=== PATIENT | female | born 1970 | race Caucasian/White ===

== ENCOUNTER → 2018-11-21 | Day surgery (SDC) | payer OTHER ==
[2018-11-18 17:32] LABS: BASOPHILS # (AUTO) 0.1 (0.0-0.1); BASOPHILS % 0.4 % (0.0-1.0); EOSINOPHILS # (AUTO) 0.1 (0.0-0.4); HEMATOCRIT 36.3 % (34.2-44.1); HEMOGLOBIN 11.4 g/dL (12.0-16.0); LYMPHOCYTES # (AUTO) 2.2 (1.0-3.2); MEAN CORPUSCULAR HEMOGLOBIN 25.6 pg (28-32); MEAN CORPUSCULAR HGB CONC 31.4 g/dL (31-35); MEAN CORPUSCULAR VOLUME 81.6 fL (81-99); MONOCYTES # (AUTO) 0.8 (0.2-0.8); MONOCYTES % 6.4 % (4.4-11.3); NEUTROPHILS # (AUTO) 8.8 (2.1-6.9); NEUTROPHILS % 73.4 % (38.7-80.0); PLATELET COUNT 396 x10e3/uL (140-360); RED BLOOD COUNT 4.45 x10e6/uL (3.6-5.1); RED CELL DISTRIBUTION WIDTH 16.3 % (11.7-14.4)
[2018-11-18 17:46] LABS: ANION GAP 14.6 mmol/L (8-16); BLOOD UREA NITROGEN 14 mg/dL (7-26); BUN/CREATININE RATIO 15 (6-25); CALCIUM 9.6 mg/dL (8.4-10.2); CARBON DIOXIDE 27 mmol/L (22-29); CHLORIDE 100 mmol/L (98-107); CREATININE, SERUM 0.93 mg/dL (0.57-1.11); EST GLOMERULAR FILTRATION RATE > 60 ML/MIN (60-); GLUCOSE 89 mg/dL (74-118); POTASSIUM 3.6 mmol/L (3.5-5.1); SODIUM 138 mmol/L (136-145)
--- NOTE | 2018-11-18 17:57 | Diagnostic Imaging Report ---
Frontal and lateral views of the chest. HISTORY: Preop, hysterectomy COMPARISON: None available. DISCUSSION: Soft tissue attenuation partially limits sensitivity of the exam. Lungs: Low lung volumes result in bibasilar vascular crowding, accentuation of the pulmonary interstitial markings, central pulmonary vasculature, and the cardiac silhouette. Allowing for these limitations, the findings are as follows: No evidence of a consolidative pneumonia or pulmonary alveolar edema. Pleura: No pleural effusion or pneumothorax. Heart and mediastinum: The cardiomediastinal silhouette appear(s) unremarkable. Bones and soft tissues: Mild accentuation of the thoracic kyphosis and multilevel minimal degenerative disc changes. Cholecystectomy clips. IMPRESSION: No acute radiographic abnormality. Signed by: Dr. Manjeet Hernandez D.O., M.M.M. on 11/18/2018 5:54 PM
[~2018-11-21] MED LIST: ALORA1 EAC1 PO; AZELASTINE137 MCG/0. INH; BUPIVACAINE 0.25% 30ML SDV INJ ONE; BUPIVACAINE HCL 0.5% INJ 30 ML VIAL INJ ONE; CARAFATE1 GM/10 ML PO; CEFAZOLIN SOD 1 GM/NS 50ML 100 ML IV ONE; DEXAMETHASONE SOD PHOS INJ 4 MG/ML VIAL ONE; DIPHENHYDRAMINE HCL INJ 50 MG/ML VIAL ONE; FENTANYL CITRATE/PF 100MCG/2 ML INJ ONE; FUROSEMIDE40 MG PO; HYDRALAZINE HCL25 MG PO; IBUPROFEN400 MG PO; IPRAT-ALBUT 0.5-3 ML INH; LEXAPRO10 MG PO; LIDOCAINE HCL 2% LOCAL INJ 5 ML SDV VIAL INJ ONE; LISINOPRIL-HCT1 EACH PO; METOPROLOL TART50 MG PO; MIDAZOLAM HCL 2 MG/2 ML VIAL ONE; MONTELUKAST SOD10 MG PO; MUCINEX DM ER1 EACH PO; NEOSTIGMINE 1 MG/ML 10ML VIAL ONE; ONDANSETRON HCL INJ 2MG/ML 2ML 2 MG/ML VIAL ONE; PANTOPRAZOLE SO40 MG PO; PAROXETINE HCL20 MG PO; PAROXETINE HCL25 MG PO; PROPOFOL IV EMULSION 10 MG/ML 20 ML VIAL ONE; SEVOFLURANE INHAL SOLN 250 ML PEN BTL ONE; SYMBICORT 16010.2 GM INH; VALTREX500 MG PO; ZOLPIDEM TARTRA10 MG PO; ZYRTEC10 M3 PO; flonase INH
--- OUTSIDE RECORDS SUMMARY | 2018-11-21 07:57 | XMS REPORT | Continuity of Care Document ---
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 [facility] STROKE LIKE SYMPTOMS Active 11/05/2017 [facility] Dizziness and giddiness 06/12/2017 06/15/2017 [facility] HYPERTENSION Active 06/11/2017 [facility] UNK Active 05/14/2017 [facility] Acute bronchitis (disorder) Resolved Problem 08/03/2018 [facility] Allergic disorder of skin (disorder) Resolved Problem 08/03/2018 [facility] Aneurysm of renal artery (disorder) Active Problem 08/03/2018 [facility] Asthma (disorder) Active Problem 08/03/2018 [facility] Backache (finding) Active Problem 08/03/2018 [facility] Bacterial pneumonia (disorder) Resolved Problem 08/03/2018 [facility] Body fluid retention (disorder) Active Problem 08/03/2018 [facility] Chronic pain (finding) Active Problem 08/03/2018 [facility] Depressive disorder (disorder) Active Problem 08/03/2018 [facility] Disease of urinary tract (disorder) Active Problem 08/03/2018 [facility] Endometriosis (disorder) Active Problem 08/03/2018 [facility] Environmental allergy (disorder) Active Problem 08/03/2018 [facility] Gastroesophageal reflux disease (disorder) Active Problem 08/03/2018 [facility] Genital herpes simplex (disorder) Resolved Problem 08/03/2018 [facility] Hiatal hernia (disorder) Active Problem 08/03/2018 [facility] Hypertensive disorder, systemic arterial (disorder) Active Problem 08/03/2018 [facility] Irritable colon (disorder) Active Problem 08/03/2018 [facility] Peripheral vascular disease (disorder) Active Problem 08/03/2018 [facility] Jaw pain 05/25/2018 [facility] NIHSS score 2 05/25/2018 [facility] Dysarthria and anarthria 05/25/2018 [facility] Essential (primary) hypertension 05/25/2018 [facility] Aneurysm of unspecified site 05/25/2018 [facility] Major depressive disorder, single episode, unspecified 05/25/2018 [facility] Unspecified asthma, uncomplicated 05/25/2018 [facility] Endometriosis, unspecified 05/25/2018 [facility] Gastro-esophageal reflux disease without esophagitis 05/25/2018 [facility] Irritable bowel syndrome without diarrhea 05/25/2018 [facility] Acquired absence of other specified parts of digestive tract 05/25/2018 [facility] Acquired absence of both cervix and uterus 05/25/2018 [facility] Mild intermittent asthma, uncomplicated 09/13/2017 [facility] 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 WASTE: F/P - Black; E - [facility]ash [facility] Active 01/13/2018 [facility] valACYclovir 1 g oral tablet 1 gm=1 tab, PO, Q8H, X 14 day, # 42 tab, 0 Refill(s) No Longer Active 11/05/2017 [facility] predniSONE 20 mg oral tablet See Special Instructions, PO, Daily, 16 day regimen: Days 1-4 - 40 mg (2 tabs) daily Days 5-8 - 30 mg (1 1/2 tabs) daily Days 9-12 - 20 mg (1 tab) daily Day 13-16 - 10 mg (1/2 tab) daily, X 16 day, # 24 tab, 0 Refill(s) No Longer Active 11/05/2017 [facility] Ibuprofen 800 mg, Route: PO, Drug form: TAB, ONCE, Dosing Weight 97.727, kg, Priority: STAT, Start date: 11/05/17 10:46:00 CDT, Stop date: 11/05/17 10:46:00 CDT Inactive 11/05/2017 [facility] Saline Flush 0.9% 10 mL, Route: IVP, Drug Form: INJ, Dosing Weight 97.727, kg, PRN, PRN Line Flush, Start date: 11/05/17 9:29:00 CDT, Duration: 30 day, Stop date: 12/05/17 9:28:00 CDTNotes: Same as: BD Posiflush Sterile Inactive 11/05/2017 [facility] Omnipaque 300 100 mL, 0.5 ml/hr, Route: IV, Drug Form: SOLN, ONCALL, Start date: 07/01/17 12:00:00 CDT, Duration: 1 day, Stop date: 07/02/17 11:59:00 CDTNotes: (Same as:Omnipaque 300). WASTE: F/P - Black; E - Municipal Trash Bin No Longer Active 07/01/2017 [facility] Benadryl 25 mg, Route: IVP, ONCE, Dosing Weight 108.182, kg, Priority: STAT, Start date: 06/12/17 4:04:00 CDT, Stop date: 06/12/17 4:04:00 CDT Inactive 06/12/2017 [facility] Reglan 10 mg, Route: IVP, Drug form: INJ, ONCE, Dosing Weight 108.182, kg, Priority: STAT, Start date: 06/12/17 4:04:00 CDT, Stop date: 06/12/17 4:04:00 CDT Inactive 06/12/2017 [facility] Fentanyl 50 microgram, Route: IVP, ONCE, Dosing Weight 108.182, kg, Priority: STAT, Start date: 06/12/17 2:55:00 CDT, Stop date: 06/12/17 2:55:00 CDT Inactive 06/12/2017 [facility] Hydralazine 10 mg, 0.5 mL, Route: IVP, Drug form: INJ, ONCE, Dosing Weight 108.182, kg, Priority: STAT, Start date: 06/12/17 0:51:00 CDT, Stop date: 06/12/17 0:51:00 CDTNotes: (Same as: Apresoline) Push over 5 m inutes Inactive 06/12/2017 [facility] Saline Flush 0.9% 10 mL, Route: IVP, Drug Form: INJ, Dosing Weight 108.182, kg, PRN, PRN Line Flush, Start date: 06/11/17 18:08:00 CDT, Duration: 30 day, Stop date: 07/11/17 18:07:00 CDTNotes: (Same as: BD Posiflush) No Longer Active 06/11/2017 [facility] Estradiol 1 MG Oral Tablet 1 mg, 1 tab, Route: PO, Drug form: TAB, Daily, Dosing Weight 108.045, kg, Start date: 06/06/17 9:00:00 CDT, Duration: 30 day, Stop date: 07/05/17 9:00:00 CDT Inactive 06/06/2017 [facility] Escitalopram 20 mg, 2 tab, Route: PO, Drug form: TAB, Daily, Dosing Weight 108.045, kg, Start date: 06/06/17 9:00:00 CDT, Duration: 30 day, Stop date: 07/05/17 9:00:00 CDTNotes: (Same as: Lexapro) Inactive 06/06/2017 [facility] pantoprazole 40 mg, 1 tab, Route: PO, Drug form: ECTAB, Daily, Dosing Weight 108.045, kg, Start date: 06/06/17 9:00:00 CDT, Duration: 30 day, Stop date: 07/05/17 9:00:00 CDTNotes: Tablet should not be chewed or c rushed. (Same as: Protonix) Inactive 06/06/2017 [facility] *Remind pt to bring home med Citrucel* *Remind pt to bring home med Citrucel*, Reminder, Drug form: MISC, Route: MISC, QSHIFT, 06/06/17 0:00:00 CDT, Duration: 30 day, Stop date: 07/05/17 16:00:00 CDT Inactive 06/06/2017 [facility] montelukast 10 mg, 1 tab, Route: PO, Drug form: TAB, Bedtime, Dosing Weight 108.045, kg, Start date: 06/05/17 21:00:00 CDT, Duration: 30 day, Stop date: 07/04/17 21:00:00 CDTNotes: (Same as:Singulair) No Longer Active 06/06/2017 [facility] Lopressor 50 mg, 1 tab, Route: PO, Drug form: TAB, Q12H, Dosing Weight 108.045, kg, Start date: 06/05/17 21:00:00 CDT, Duration: 30 day, Stop date: 07/05/17 9:00:00 CDTNotes: (Same as: Lopressor) No Longer Active 06/06/2017 [facility] zolpidem 5 mg, 1 tab, Route: PO, Drug form: TAB, Bedtime, Dosing Weight 108.045, kg, Start date: 06/05/17 21:00:00 CDT, Duration: 30 day, Stop date: 07/04/17 21:00:00 CDTNotes: (Same As: Ambien) No Longer Active 06/06/2017 [facility] Methylcellulose 2000 MG Powder for Oral Suspension [Citrucel] 2 gm, Route: PO, Drug form: PDR/REC, TID, Dosing Weight 108.045, kg, Start date: 06/05/17 17:00:00 CDT, Duration: 30 day, Stop date: 07/05/17 13:00:00 CDT No Longer Active 06/05/2017 [facility] Methocarbamol 1,500 mg, 2 tab, Route: PO, Drug form: TAB, TID, Dosing Weight 108.045, kg, Start date: 06/05/17 17:00:00 CDT, Duration: 30 day, Stop date: 07/05/17 13:00:00 CDTNotes: (Same as:Robaxin) No Longer Active 06/05/2017 [facility] clobetasol topical 0.05% cream 1 appl, Route: TOP, BID, Drug form: CRM, Start date: 06/05/17 17:00:00 CDT, Duration: 30 day, Stop date: 07/05/17 9:00:00 CDTNotes: 15 gm tube (Same As: Temovate) No Longer Active 06/05/2017 [facility] Symbicort 160/4.5 inhalation aerosol with adapter 2 inhalation, Route: INHALER, Drug Form: AERO/A, Dosing Weight 108.045, kg, BID, Start date: 06/05/17 17:00:00 CDT, Duration: 30 day, Stop date: 07/05/17 9:00:00 CDTNotes: (Same as: Symbicort) WASTE: Aerosol - Return to Pharmacy No Longer Active 06/05/2017 [facility] Clobetasol Propionate 0.5 MG/ML Topical Cream 1 appl, Route: TOP, BID, Drug form: CRM, Start date: 06/05/17 17:00:00 CDT, Duration: 30 day, Stop date: 07/05/17 9:00:00 CDTNotes: 15 gm tube (Same As: Temovate) No Longer Active 06/05/2017 [facility] Eye Itch Relief 1 drp, Route: BOTH EYES, Drug Form: SOLN, Dosing Weight 108.045, kg, Q8H, Start date: 06/05/17 16:00:00 CDT, Duration: 30 day, Stop date: 07/05/17 8:00:00 CDTNotes: (Same as:Zaditor) No Longer Active 06/05/2017 [facility] Lovenox 40 mg, 0.4 mL, Route: SUB-Q, Drug form: INJ, [id number], Dosing Weight 108.045, kg, Priority: Within 8 hours, Start date: 06/05/17 15:00:00 CDT, Duration: 30 day, Stop date: 07/04/17 9:00:00 CDTNotes: (Same as: Lovenox) No Longer Active 06/05/2017 [facility] Benadryl 50 mg, 2 tab, Route: PO, Drug form: TAB, Q8H, Dosing Weight 108.045, kg, PRN Itching, Start date: 06/05/17 14:55:00 CDT, Duration: 30 day, Stop date: 07/05/17 14:54:00 CDT No Longer Active 06/05/2017 [facility] Zofran 4 mg, 2 mL, Route: IVP, Drug form: INJ, Q8H, Dosing Weight 108.045, kg, PRN Nausea, Start date: 06/05/17 14:54:00 CDT, Duration: 30 day, Stop date: 07/05/17 14:53:00 CDTNotes: (Same as: Zofran) MEDICATION WASTE Product Size: 4 mg Product Wasted: ___ mg No Longer Active 06/05/2017 [facility] Morphine 2 mg, 1 mL, Route: IVP, Drug form: SOLN, Q2H, Dosing Weight 108.045, kg, PRN Pain Score 7-10, Start date: 06/05/17 14:50:00 CDT, Duration: 30 day, Stop date: 07/05/17 14:49:00 CDT No Longer Active 06/05/2017 [facility] Ondansetron 4 mg, Route: IVP, ONCE, Dosing Weight 108.045, kg, PRN Nausea & Vomiting, Start date: 06/05/17 14:40:00 CDT Inactive 06/05/2017 [facility] Promethazine 6.25 mg, Route: IVPB, ONCE, Dosing Weight 108.045, kg, PRN Nausea & Vomiting, Start date: 06/05/17 14:40:00 CDT Inactive 06/05/2017 [facility] Naloxone 0.4 mg, Route: IVP, Q2MIN, Dosing Weight 108.045, kg, PRN Narcotic Reversal, Start date: 06/05/17 14:40:00 CDT, Duration: 8 doses or times, Stop date: Limited # of times Inactive 06/05/2017 [facility] Flumazenil 0.2 mg, Route: IVP, PRN, Dosing Weight 108.045, kg, PRN Benzodiazepine Reversal, Initial dose, Start date: 06/05/17 14:40:00 CDT, Duration: 30 day, Stop date: 07/05/17 14:39:00 CDT Inactive 06/05/2017 [facility] Diphenhydramine 12.5 mg, Route: IVP, Drug form: INJ, Q6H, Dosing Weight 108.045, kg, PRN Itching, Start date: 06/05/17 14:40:00 CDT, Duration: 30 day, Stop date: 07/05/17 14:39:00 CDT Inactive 06/05/2017 [facility] Fentanyl 50 microgram, Route: IVP, Q5Min, Dosing Weight 108.045, kg, PRN Pain Score 7-10, Priority: Routine, Start date: 06/05/17 14:40:00 CDT, Duration: 2 doses or times, Stop date: Limited # of times Inactive 06/05/2017 [facility] Albuterol 0.83 MG/ML Inhalant Solution 2.49 mg, Route: NEB, Q20Min, Dosing Weight 108.045, kg, PRN Wheezing, Priority: STAT, Start date: 06/05/17 14:40:00 CDT, Duration: 30 day, Stop date: 07/05/17 14:39:00 CDT Inactive 06/05/2017 [facility] Hydralazine 10 mg, Route: IVP, Q20Min, Dosing Weight 108.045, kg, PRN Elevated BP, Start date: 06/05/17 14:40:00 CDT, Duration: 2 doses or times, Stop date: Limited # of times Inactive 06/05/2017 [facility] esmolol 10 mg, Route: IVP, Q5Min, Dosing Weight 108.045, kg, PRN Other -See Comment, Start date: 06/05/17 14:40:00 CDT, Duration: 5 doses or times, Stop date: Limited # of times Inactive 06/05/2017 [facility] Labetalol 10 mg, Route: IVP, Q5Min, Dosing Weight 108.045, kg, PRN Elevated BP, Start date: 06/05/17 14:40:00 CDT, Duration: 5 doses or times, Stop date: Limited # of times Inactive 06/05/2017 [facility] Calcium Chloride 0.0014 MEQ/ML / Potassium Chloride 0.004 MEQ/ML / Sodium Chloride 0.103 MEQ/ML / Sodium Lactate 0.028 MEQ/ML Injectable Solution 1,000 mL, Rate: 125 ml/hr, Infuse over: 8 hr, Route: IV, Dosing Weight 108.045 kg, Total Volume: 1,000, Start date: 06/05/17 14:40:00 CDT, Duration: 30 day, Stop date: 07/05/17 14:39:00 CDT, 2.26, m2 Inactive 06/05/2017 [facility] normal saline 0.9% IV 1,000 mL 1,000 mL, Rate: 100 ml/hr, Infuse over: 10 hr, Route: IV, Dosing Weight 108.045 kg, Total Volume: 1,000, Start date: 06/05/17 14:21:00 CDT, Duration: 30 day, Stop date: 07/05/17 14:20:00 CDT, 2.26, m2 No Longer Active 06/05/2017 [facility] ondansetron (ANES) Route: IV, Drug form: INJ, ONCE, Stop date: 06/05/17 13:45:00 CDT Inactive 06/05/2017 [facility] glycopyrrolate (ANES) Route: IV, Drug form: INJ, ONCE, Stop date: 06/05/17 13:45:00 CDT Inactive 06/05/2017 [facility] neostigmine (ANES) Route: IV, Drug form: INJ, ONCE, Stop date: 06/05/17 13:45:00 CDT Inactive 06/05/2017 [facility] protamine (ANES) 10 mg Route: IV, Drug form: INJ, Start date: 06/05/17 13:36:00 CDT, Stop date: 06/05/17 14:36:00 CDT Inactive 06/05/2017 [facility] midazolam (ANES) Route: IV, Drug form: SOLN, ONCE, Stop date: 06/05/17 13:19:00 CDT Inactive 06/05/2017 [facility] metoclopramide (ANES) Route: IV, Drug form: INJ, ONCE, Stop date: 06/05/17 13:19:00 CDT Inactive 06/05/2017 [facility] fentaNYL (ANES) Route: IV, Drug form: INJ, ONCE, Stop date: 06/05/17 13:19:00 CDT Inactive 06/05/2017 [facility] lidocaine (ANES) Route: IV, Drug form: INJ, ONCE, Stop date: 06/05/17 13:19:00 CDT Inactive 06/05/2017 [facility] heparin (ANES) Route: IV, Drug form: INJ, ONCE, Stop date: 06/05/17 13:19:00 CDT Inactive 06/05/2017 [facility] propofol (ANES) Route: IV, Drug form: INJ, ONCE, Stop date: 06/05/17 13:19:00 CDT Inactive 06/05/2017 [facility] rocuronium (ANES) Route: IV, Drug form: INJ, ONCE, Stop date: 06/05/17 13:19:00 CDT Inactive 06/05/2017 [facility] ceFAZolin (ANES) Route: IV, Drug form: INJ, ONCE, Stop date: 06/05/17 13:19:00 CDT Inactive 06/05/2017 [facility] acetaminophen (ANES) 10 mg Route: IV, Drug form: INJ, Start date: 06/05/17 13:09:00 CDT, Stop date: 06/05/17 14:09:00 CDT Inactive 06/05/2017 [facility] Sodium Chloride 0.9% IV (ANES) 1000 mL Route: IV, Total Volume: 1,000, Start date: 06/05/17 12:23:00 CDT, Stop date: 06/05/17 13:23:00 CDT Inactive 06/05/2017 [facility] vancomycin (ANES) 1000 mg Route: IV, Drug form: INJ, Start date: 06/05/17 12:17:00 CDT, Stop date: 06/05/17 13:17:00 CDT Inactive 06/05/2017 [facility] Lactated Ringers Injection IV (ANES) 1000 mL Route: IV, Total Volume: 1,000, Start date: 06/05/17 11:58:00 CDT, Stop date: 06/05/17 12:58:00 CDT Inactive 06/05/2017 [facility] Albuterol 0.833 MG/ML / Ipratropium [place] 0.167 MG/ML Inhalant Solution 3 mL, Route: NEB, Drug Form: SOLN, Dosing Weight 108.045, kg, ONCE, STAT, Start date: 06/05/17 10:35:00 CDT, Stop date: 06/05/17 10:35:00 CDTNotes: (Same as: Tim) No Longer Active 06/05/2017 [facility] Calcium Chloride 0.0014 MEQ/ML / Potassium Chloride 0.004 MEQ/ML / Sodium Chloride 0.103 MEQ/ML / Sodium Lactate 0.028 MEQ/ML Injectable Solution 1,000 mL, Rate: 25 ml/hr, Infuse over: 40 hr, Route: IV, Dosing Weight 108.045 kg, Total Volume: 1,000, Start date: 06/05/17 10:35:00 CDT, Duration: 1 day, Stop date: 06/06/17 10:34:00 CDT, 2.26, m2 No Longer Active 06/05/2017 [facility] metoprolol 50 mg oral tablet, extended release See Instructions, 1 1/2 tab PO BID, 0 Refill(s) Active 05/29/2017 [facility] Azelastine hydrochloride 0.137 MG/ACTUAT / Fluticasone propionate 0.05 MG/ACTUAT Metered Dose Nasal [place] [Dymista] 2 spray, NASAL, BID, # 23 gm, 1 Refill(s) Active 05/29/2017 [facility] montelukast 10 mg oral tablet 10 mg=1 tab, PO, Bedtime, # 30 tab, 0 Refill(s) Active 05/29/2017 [facility] ibuprofen 800 mg oral tablet 800 mg=1 tab, PO, Q8H, PRN Pain, Take with food, # 30 tab, 0 Refill(s) Active 05/29/2017 [facility] zolpidem 10 mg oral tablet 10 mg=1 tab, PO, Bedtime, 0 Refill(s) Active 05/29/2017 [facility] Estradiol 1 MG Oral Tablet 1 mg=1 tab, PO, Daily, # 30 tab, 0 Refill(s) Active 05/29/2017 [facility] Zyrtec See Instructions, Daily, 0 Refill(s) Active 05/29/2017 [facility] methocarbamol 750 mg oral tablet 1,500 mg=2 tab, PO, TID, 0 Refill(s) Active 05/29/2017 [facility] escitalopram 20 mg oral tablet 20 mg=1 tab, PO, Daily, # 30 tab, 0 Refill(s) Active 05/29/2017 [facility] Symbicort 160/4.5 inhalation aerosol with adapter 2 puff, INHALER, BID, # 1 ea, 3 Refill(s) Active 05/29/2017 [facility] Furosemide See Instructions, WED-SAT only, 0 Refill(s) Active 05/29/2017 [facility] pantoprazole 40 mg, PO, Daily, # 30 tab, 0 Refill(s) Active 05/29/2017 [facility] Lexapro PO, Daily, 0 Refill(s) Active 05/29/2017 [facility] Methylcellulose 2000 MG Powder for Oral Suspension [Citrucel] 2 gm, PO, TID, 0 Refill(s) Active 05/29/2017 [facility] Ondansetron 4 MG Oral Tablet [Zofran] 4 mg=1 tab, PO, Q6H, PRN Nausea/Vomiting, # 30 tab, 0 Refill(s) Active 05/29/2017 [facility] Eye Itch Relief 1 drp, BOTH EYES, Q8H, 0 Refill(s) Active 05/29/2017 [facility] Benadryl See Instructions, 0 Refill(s) Active 05/29/2017 [facility] clobetasol topical 0.05% cream 1 appl, TOP, BID, 0 Refill(s) Active 05/29/2017 [facility] Clobetasol Propionate 0.5 MG/ML Topical Cream 1 appl, TOP, BID, 0 Refill(s) Active 05/29/2017 [facility] Vancomycin 1 gm, Route: IVPB, Drug form: INJ, PRE OP, kg, Start date: 05/29/17 11:00:00 CDT, Duration: 1 day, Stop date: 05/30/17 10:59:00 CDT, ABX Indication: Surgical ProphylaxisNotes: TIME CRITICAL MEDICATIO N (Same As: Vancocin) Infusion rate 2001 mg: infuse over 2.5 hours For adult patients only: Round to nearest 250 mg per Medical Staff approval MEDICATION WASTE Product Size: 1000 mg Product Wasted: ___ mg No Longer Active 05/29/2017 [facility] Ancef + sterile water 20 mL 2 gm, Route: IV, PRE OP, kg, Start date: 05/29/17 11:00:00 CDT, Duration: 1 day, Stop date: 05/30/17 10:59:00 CDT, ABX Indication: Surgical ProphylaxisNotes: (Same As: Ancef Kefzol) MEDICATION WASTE Product Size: 1000 mg Product Wasted: __0_ mg No Longer Active 05/29/2017 [facility] Allergies, Adverse Reactions, Alerts Substance Category Reaction Severity Reaction type Status Date Reported Comments Source codeine Assertion Drug allergy Active [facility] Toradol Assertion Drug allergy Active [facility] Dilaudid Assertion Drug allergy Active [facility] Vicodin Assertion Drug allergy Active [facility] Tape Assertion Drug allergy Active [facility] traMADol Assertion Drug allergy Active [facility] HYDROcodone Assertion Drug allergy Active [facility] Immunizations No Data Provided for This Section Results Order Name Results Value Reference Range Date Interpretation Comments Source CHEM PANEL eGFR 88 01/13/2018 Result Comment: The eGFR is calculated using the CKD-EPI formula. In most young, healthy individuals the eGFR will be >90 mL/min/1.73m2. The eGFR declines with age. An eGFR of 60-89 may be normal in some populations, particularly the elderly, for whom the CKD-EPI formula has not been extensively validated. Use of the eGFR is not recommended in the following populations:

Individuals with unstable creatinine concentrations, including patients and those with serious co-morbid conditions.

Patients with extremes in muscle mass or diet.

The data above are obtained from the National Kidney Disease Education Program (NKDEP) which additionally recommends that when the eGFR is used in patients with extremes of body mass index for purposes of drug dosing, the eGFR should be multiplied by the estimated BMI. [facility] CHEM PANEL POC Creatinine 0.8 0.5 - 1.4 01/13/2018 [facility] CHEM PANEL POC Creatinine 0.8 0.5 - 1.4 11/05/2017 [facility] CHEM PANEL eGFR 88 11/05/2017 Result Comment: The eGFR is calculated using the CKD-EPI formula. In most young, healthy individuals the eGFR will be >90 mL/min/1.73m2. The eGFR declines with age. An eGFR of 60-89 may be normal in some populations, particularly the elderly, for whom the CKD-EPI formula has not been extensively validated. Use of the eGFR is not recommended in the following populations:

Individuals with unstable creatinine concentrations, including patients and those with serious co-morbid conditions.

Patients with extremes in muscle mass or diet.

The data above are obtained from the National Kidney Disease Education Program (NKDEP) which additionally recommends that when the eGFR is used in patients with extremes of body mass index for purposes of drug dosing, the eGFR should be multiplied by the estimated BMI. [facility] CARDIAC ENZYMES Troponin-I <0.02 0.00 - 0.40 11/05/2017 [facility] CARDIAC ENZYMES Total CK 76 12 - 191 11/05/2017 [facility] ELECTROLYTES Sodium Lvl 143 135 - 145 11/05/2017 [facility] ELECTROLYTES Potassium Lvl 3.8 3.5 - 5.1 11/05/2017 [facility] ELECTROLYTES Creatinine Lvl 0.90 0.50 - 1.40 11/05/2017 [facility] ELECTROLYTES Chloride Lvl 105 95 - 109 11/05/2017 [facility] ELECTROLYTES CO2 27 24 - 32 11/05/2017 [facility] ELECTROLYTES Calcium Lvl 8.3 8.5 - 10.5 11/05/2017 [facility] ELECTROLYTES eGFR 77 11/05/2017 Result Comment: The eGFR is calculated using the CKD-EPI formula. In most young, healthy individuals the eGFR will be >90 mL/min/1.73m2. The eGFR declines with age. An eGFR of 60-89 may be normal in some populations, particularly the elderly, for whom the CKD-EPI formula has not been extensively validated. Use of the eGFR is not recommended in the following populations:

Individuals with unstable creatinine concentrations, including patients and those with serious co-morbid conditions.

Patients with extremes in muscle mass or diet.

The data above are obtained from the National Kidney Disease Education Program (NKDEP) which additionally recommends that when the eGFR is used in patients with extremes of body mass index for purposes of drug dosing, the eGFR should be multiplied by the estimated BMI. [facility] ELECTROLYTES Glucose Lvl 118 70 - 99 11/05/2017 [facility] ELECTROLYTES BUN 14 7 - 22 11/05/2017 [facility] ELECTROLYTES AGAP 14.8 10.0 - 20.0 11/05/2017 [facility] Monocytes 8.2 2.0 - 12.0 11/05/2017 [facility] Lymphocytes 20.4 20.0 - 40.0 11/05/2017 [facility] Segs 69.7 45.0 - 75.0 11/05/2017 [facility] Neutrophils # 6.2 1.5 - 8.1 11/05/2017 [facility] Basophils 0.4 0.0 - 1.0 11/05/2017 [facility] Monocytes # 0.7 0.0 - 0.8 11/05/2017 [facility] Eosinophils # 0.1 0.0 - 0.5 11/05/2017 [facility] Eosinophils 1.3 0.0 - 4.0 11/05/2017 [facility] Microcyte 1+ *ABN* (11/05/17 9:32 AM) None Seen 11/05/2017 [facility] Lymphocytes # 1.8 1.0 - 5.5 11/05/2017 [facility] Hct 34.7 36.0 - 48.0 11/05/2017 [facility] Hgb 11.2 12.0 - 16.0 11/05/2017 [facility] MCH 25.4 27.0 - 31.0 11/05/2017 [facility] [facility] [place] MCV 78.2 80.0 - 98.0 11/05/2017 [facility] RBC 4.43 4.20 - 5.40 11/05/2017 [facility] RDW 16.2 11.5 - 14.5 11/05/2017 [facility] Platelet 347 133 - 450 11/05/2017 [facility] MPV 8.3 7.4 - 10.4 11/05/2017 [facility] MCHC 32.4 32.0 - 36.0 11/05/2017 [facility] WBC 8.9 3.7 - 10.4 11/05/2017 [facility] PTT 35.1 22.9 - 35.8 11/05/2017 [facility] INR 0.93 0.85 - 1.17 11/05/2017 [facility] PT 12.5 12.0 - 14.7 11/05/2017 [facility] CHEM PANEL eGFR 60 07/01/2017 Result Comment: The eGFR is calculated using the CKD-EPI formula. In most young, healthy individuals the eGFR will be >90 mL/min/1.73m2. The eGFR declines with age. An eGFR of 60-89 may be normal in some populations, particularly the elderly, for whom the CKD-EPI formula has not been extensively validated. Use of the eGFR is not recommended in the following populations:

Individuals with unstable creatinine concentrations, including patients and those with serious co-morbid conditions.

Patients with extremes in muscle mass or diet.

The data above are obtained from the National Kidney Disease Education Program (NKDEP) which additionally recommends that when the eGFR is used in patients with extremes of body mass index for purposes of drug dosing, the eGFR should be multiplied by the estimated BMI. [facility] CHEM PANEL POC Creatinine 1.1 0.5 - 1.4 07/01/2017 [facility] CARDIAC ENZYMES CK MB Index <1.2 0.0 - 2.5 06/12/2017 [facility] CARDIAC ENZYMES BNP 236 <=100 pg/mL 06/12/2017 [facility] CARDIAC ENZYMES Troponin-I <0.02 0.00 - 0.40 06/12/2017 [facility] CARDIAC ENZYMES Total CK 40 12 - 191 06/12/2017 [facility] CARDIAC ENZYMES CK MB <0.5 0.5 - 3.6 06/12/2017 [facility] CHEM PANEL eGFR 92 06/12/2017 Result Comment: The eGFR is calculated using the CKD-EPI formula. In most young, healthy individuals the eGFR will be >90 mL/min/1.73m2. The eGFR declines with age. An eGFR of 60-89 may be normal in some populations, particularly the elderly, for whom the CKD-EPI formula has not been extensively validated. Use of the eGFR is not recommended in the following populations:

Individuals with unstable creatinine concentrations, including patients and those with serious co-morbid conditions.

Patients with extremes in muscle mass or diet.

The data above are obtained from the National Kidney Disease Education Program (NKDEP) which additionally recommends that when the eGFR is used in patients with extremes of body mass index for purposes of drug dosing, the eGFR should be multiplied by the estimated BMI. [facility] CHEM PANEL Globulin 4.3 2.7 - 4.2 06/12/2017 [facility] CHEM PANEL A/G Ratio 0.7 0.7 - 1.6 06/12/2017 [facility] CHEM PANEL B/C Ratio 21 6 - 25 06/12/2017 [facility] CHEM PANEL AGAP 10.2 10.0 - 20.0 06/12/2017 [facility] CHEM PANEL Albumin Lvl 2.8 3.5 - 5.0 06/12/2017 [facility] CHEM PANEL Bili Total 0.2 0.2 - 1.3 06/12/2017 [facility] CHEM PANEL Alk Phos 105 39 - 136 06/12/2017 [facility] CHEM PANEL AST 18 0 - 37 06/12/2017 [facility] CHEM PANEL ALT 20 0 - 65 06/12/2017 [facility] CHEM PANEL CO2 31 24 - 32 06/12/2017 [facility] CHEM PANEL Total Protein 7.1 6.4 - 8.4 06/12/2017 [facility] CHEM PANEL Calcium Lvl 8.4 8.5 - 10.5 06/12/2017 [facility] CHEM PANEL Chloride Lvl 106 95 - 109 06/12/2017 [facility] CHEM PANEL Creatinine Lvl 0.78 0.50 - 1.40 06/12/2017 [facility] CHEM PANEL Sodium Lvl 144 135 - 145 06/12/2017 [facility] CHEM PANEL Potassium Lvl 3.2 3.5 - 5.1 06/12/2017 [facility] CHEM PANEL BUN 16 7 - 22 06/12/2017 [facility] CHEM PANEL Glucose Lvl 91 70 - 99 06/12/2017 [facility] [place] Segs-Bands # 6.9 1.5 - 8.1 06/12/2017 [facility] [place] [place] Lymphocytes 23.9 20.0 - 40.0 06/12/2017 [facility] [place] Monocytes 9.1 2.0 - 12.0 06/12/2017 [facility] HEMATOLOGY Eosinophils 0.1 0.0 - 4.0 06/12/2017 [facility] [place] [place] Basophils 0.4 0.0 - 1.0 06/12/2017 [facility] [place] Microcyte 1+ *ABN* (06/12/17 12:36 AM) None Seen 06/12/2017 [facility] [place] Lymphocytes # 2.5 1.0 - 5.5 06/12/2017 [facility] [place] Monocytes # 0.9 0.0 - 0.8 06/12/2017 [facility] [place] Segs 66.5 45.0 - 75.0 06/12/2017 [facility] [place] MCV 76.6 80.0 - 98.0 06/12/2017 [facility] [place] [facility] Platelet 334 133 - 450 06/12/2017 [facility] [place] RDW 16.5 11.5 - 14.5 06/12/2017 [facility] [place] MPV 8.6 7.4 - 10.4 06/12/2017 [facility] [place] WBC 10.3 3.7 - 10.4 06/12/2017 [facility] [place] RBC 4.21 4.20 - 5.40 06/12/2017 [facility] [place] [place] Hct 32.3 36.0 - 48.0 06/12/2017 [facility] [place] Hgb 10.1 12.0 - 16.0 06/12/2017 [facility] [place] MCH 24.0 27.0 - 31.0 06/12/2017 [facility] [place] MCHC 31.4 32.0 - 36.0 06/12/2017 [facility] HEMATOLOGY PT 12.3 12.0 - 14.7 06/12/2017 [facility] [place] INR 0.91 0.85 - 1.17 06/12/2017 [facility] [place] PTT 32.9 22.9 - 35.8 06/12/2017 [facility] ELECTROLYTES AGAP 7.5 10.0 - 20.0 06/06/2017 [facility] ELECTROLYTES eGFR 76 06/06/2017 Result Comment: The eGFR is calculated using the CKD-EPI formula. In most young, healthy individuals the eGFR will be >90 mL/min/1.73m2. The eGFR declines with age. An eGFR of 60-89 may be normal in some populations, particularly the elderly, for whom the CKD-EPI formula has not been extensively validated. Use of the eGFR is not recommended in the following populations:

Individuals with unstable creatinine concentrations, including patients and those with serious co-morbid conditions.

Patients with extremes in muscle mass or diet.

The data above are obtained from the National Kidney Disease Education Program (NKDEP) which additionally recommends that when the eGFR is used in patients with extremes of body mass index for purposes of drug dosing, the eGFR should be multiplied by the estimated BMI. [facility] ELECTROLYTES Calcium Lvl 7.7 8.5 - 10.5 06/06/2017 [facility] ELECTROLYTES CO2 28 24 - 32 06/06/2017 [facility] ELECTROLYTES Chloride Lvl 108 95 - 109 06/06/2017 [facility] ELECTROLYTES Sodium Lvl 140 135 - 145 06/06/2017 [facility] ELECTROLYTES Creatinine Lvl 0.91 0.50 - 1.40 06/06/2017 [facility] ELECTROLYTES BUN 10 7 - 22 06/06/2017 [facility] ELECTROLYTES Glucose Lvl 122 70 - 99 06/06/2017 [facility] ELECTROLYTES Potassium Lvl 3.5 3.5 - 5.1 06/06/2017 [facility] [facility] Platelet 241 133 - 450 06/06/2017 [facility] [facility] RDW 16.7 11.5 - 14.5 06/06/2017 [facility] MCH 24.6 27.0 - 31.0 06/06/2017 [facility] MCHC 31.4 32.0 - 36.0 06/06/2017 [facility] [place] MPV 8.7 7.4 - 10.4 06/06/2017 [facility] Hct 33.3 36.0 - 48.0 06/06/2017 [facility] Hgb 10.4 12.0 - 16.0 06/06/2017 [facility] WBC 7.5 3.7 - 10.4 06/06/2017 [facility] [place] RBC 4.25 4.20 - 5.40 06/06/2017 [facility] MCV 78.3 80.0 - 98.0 06/06/2017 [facility] Segs-Bands # 5.4 1.5 - 8.1 06/06/2017 [facility] [place] Basophils 0.5 0.0 - 1.0 06/06/2017 [facility] [place] Eosinophils 1.2 0.0 - 4.0 06/06/2017 [facility] [place] Monocytes 12.3 2.0 - 12.0 06/06/2017 [facility] [place] Lymphocytes # 1.1 1.0 - 5.5 06/06/2017 [facility] Microcyte 1+ *ABN* (06/06/17 4:02 AM) None Seen 06/06/2017 [facility] [place] Monocytes # 0.9 0.0 - 0.8 06/06/2017 [facility] [place] Eosinophils # 0.1 0.0 - 0.5 06/06/2017 [facility] [place] Segs 71.8 45.0 - 75.0 06/06/2017 [facility] [place] Lymphocytes 14.2 20.0 - 40.0 06/06/2017 [facility] BLOOD BANK RESULTS RBC product Product available 1 (06/05/17 8:59 AM) 06/05/2017 Result Comment: 06/05/2017 09:21 [id number]
notified [facility] BLOOD BANK RESULTS ABO/Rh O POS 05/29/2017 [facility] BLOOD [facility] RESULTS Antibody Scrn Negative (05/29/17 11:15 AM) 05/29/2017 [facility] CHEM PANEL eGFR 86 05/29/2017 Result Comment: The eGFR is calculated using the CKD-EPI formula. In most young, healthy individuals the eGFR will be >90 mL/min/1.73m2. The eGFR declines with age. An eGFR of 60-89 may be normal in some populations, particularly the elderly, for whom the CKD-EPI formula has not been extensively validated. Use of the eGFR is not recommended in the following populations:

Individuals with unstable creatinine concentrations, including patients and those with serious co-morbid conditions.

Patients with extremes in muscle mass or diet.

The data above are obtained from the National Kidney Disease Education Program (NKDEP) which additionally recommends that when the eGFR is used in patients with extremes of body mass index for purposes of drug dosing, the eGFR should be multiplied by the estimated BMI. [facility] CHEM PANEL Sodium Lvl 143 135 - 145 05/29/2017 [facility] CHEM PANEL Potassium Lvl 4.4 3.5 - 5.1 05/29/2017 [facility] CHEM PANEL Glucose Lvl 87 70 - 99 05/29/2017 [facility] CHEM PANEL BUN 14 7 - 22 05/29/2017 [facility] CHEM PANEL Creatinine Lvl 0.82 0.50 - 1.40 05/29/2017 [facility] CHEM PANEL Chloride Lvl 108 95 - 109 05/29/2017 [facility] CHEM PANEL CO2 26 24 - 32 05/29/2017 [facility] CHEM PANEL Calcium Lvl 8.5 8.5 - 10.5 05/29/2017 [facility] CHEM PANEL AGAP 13.4 10.0 - 20.0 05/29/2017 [facility] [place] [facility] Platelet 382 133 - 450 05/29/2017 [facility] RDW 16.5 11.5 - 14.5 05/29/2017 [facility] MCHC 32.3 32.0 - 36.0 05/29/2017 [facility] MPV 9.1 7.4 - 10.4 05/29/2017 [facility] [place] MCH 24.9 27.0 - 31.0 05/29/2017 [facility] MCV 76.9 80.0 - 98.0 05/29/2017 [facility] Hct 36.5 36.0 - 48.0 05/29/2017 [facility] RBC 4.75 4.20 - 5.40 05/29/2017 [facility] WBC 7.9 3.7 - 10.4 05/29/2017 [facility] Hgb 11.8 12.0 - 16.0 05/29/2017 [facility] PTT 32.6 22.9 - 35.8 05/29/2017 [facility] [facility] INR 0.91 0.85 - 1.17 05/29/2017 [facility] PT 12.2 12.0 - 14.7 05/29/2017 [facility] Basophils # 0.1 0.0 - 0.2 05/29/2017 [facility] [place] Microcyte 1+ *ABN* (05/29/17 11:15 AM) None Seen 05/29/2017 [facility] Eosinophils # 0.2 0.0 - 0.5 05/29/2017 [facility] [place] Monocytes # 0.7 0.0 - 0.8 05/29/2017 [facility] [place] Lymphocytes # 2.0 1.0 - 5.5 05/29/2017 [facility] HEMATOLOGY Monocytes 8.9 2.0 - 12.0 05/29/2017 [facility] HEMATOLOGY Eosinophils 2.0 0.0 - 4.0 05/29/2017 [facility] HEMATOLOGY Segs-Bands # 5.0 1.5 - 8.1 05/29/2017 [facility] HEMATOLOGY Basophils 0.7 0.0 - 1.0 05/29/2017 [facility] HEMATOLOGY Lymphocytes 25.6 20.0 - 40.0 05/29/2017 [facility] HEMATOLOGY Segs 62.8 45.0 - 75.0 05/29/2017 [facility] Pathology Reports No Data Provided for This Section Diagnostic Reports Report Value Date Source Abdomen CTA EXAM: CT abdomen HISTORY: Aneurysm renal artery COMPARISON: CT TECHNIQUE: Axial images abdomen with sagittal and coronal reformats and post processed 3-D volume rendered images of the renal arteries. 100 mL Omnipaque 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 The aneurysm of the renal artery at the hilum measures 1.2 x 1.1 cm, previously 1.4 x 1.2 cm. No aneurysm of the left renal artery. Normal enhancement of both kidneys. Stable scarring and atrophy of the left kidney and mild-moderate cortical scarring and perinephric stranding right kidney. Liver: Marked fatty change. Gallbladder: Cholecystectomy. Spleen: Unremarkable. Pancreas: Unremarkable. Adrenal glands: Unremarkable. Peritoneum and retroperitoneum: No free fluid. IMPRESSION: 1. 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 2. Stable scarring of the kidneys and atrophy of the left kidney. 3. Fatty liver. SL 16 01/13/2018 [facility] Brain/Neck CTA EXAM: CTA BRAIN EXAM: CTA NECK DATE: 11/05/2017 9:30 AM CDT INDICATION: - right sided facial droop left-sided headache radiating to left side of the neck. Right-sided facial drooping with right eyelid to chronic COMPARISON: CT performed earlier this morning. TECHNIQUE: Rapid acquisition spiral CT images of the brain and neck were obtained between the aortic arch and the cranial vertex during intravenous infusion of iodinated contrast for the purposes of CT angiography. 3-D CT angiographic images are created using MIP technique at the acquisition workstation. The source images are also presented for interpretation. IV contrast: 100 cc of intravenous Omnipaque CT imaging performed at this location utilizes radiation dose optimization techniques which include one or more of the following: -Automated exposure control -Adjustment of the mA and/or kV according to patient size -Use of iterative reconstruction technique CT Radiation Dose DLP 968 mGy-cm FINDINGS: NECK CTA: Aortic arch: The great vessels originate from the aortic arch in the standard configuration. No origin stenosis is identified. The vertebral artery origins are patent bilaterally. Carotid arteries: The cervical common carotid arteries and cervical internal carotid arteries have a normal course, caliber, and contour. There are areas of calcification at the carotid bifurcations. No hemodynamically significant stenosis of the carotid bifurcations or internal carotid arteries is present by NASCET criteria. There is no evidence of vascular injury. Vertebral arteries: The vertebral arteries have a normal course, caliber and contour. The soft tissues of the neck and other incidental structures are normal. BRAIN CTA: The anterior and posterior circulations have a normal appearance and a standard branching pattern. No branch occlusion, vascular injury, arteritis, vascular malformation or aneurysm is identified. The deep cerebral veins and major venous sinuses are normal. The brain parenchyma and other incidental structures are unremarkable. IMPRESSION: Unremarkable CTA of the neck and brain. (All qualitative and quantitative assessments of carotid bifurcation and proximal internal carotid artery stenosis are made referencing the distal internal carotid artery {NASCET criteria}.) 11/05/2017 [facility] Chest 1view DX 1 VIEW CXR. PORTABLE EXAM 9:29 AM HISTORY: Stroke symptoms. COMPARISON: 06/11/2017 chest x-ray. The cardiomediastinal silhouette is normal. The lungs are clear with normal pulmonary vasculature. No pleural abnormality. Bones intact. IMPRESSION: Normal exam. END OF IMPRESSION SL: [id number] 11/05/2017 [facility] Brain Stroke wo contrast CT Clinical Indication: Stroke like symptoms. Left-sided facial droop, jaw pain and dysarthria. Comparison: None TECHNIQUE: CT images were obtained from the foramen magnum to the vertex without the use of intravenous contrast on a multidetector CT. Axial, coronal and sagittal reformats created. CT imaging performed at this location utilizes radiation dose optimization techniques which include one or more of the following: -Automated exposure control -Adjustment of the mA and/or kV according to patient size -Use of iterative reconstruction technique CT Radiation Dose DLP: 981 mGy-cm. DLP means Dose Length Product, a radiation dose metric that does not report individual patient dose, but is a reference value related to the radiation output of the scanner used for this exam. FINDINGS: CALVARIUM AND SCALP: No acute fracture, or destructive osseous lesion. No signs of significant degenerative changes of the mandibular condyles. No scalp hematoma. VENTRICLES AND SULCI: Normal in size and configuration for the patient's age. EXTRA-AXIAL SPACES: No acute extra axial hemorrhage, fluid collection or mass effect. BRAIN PARENCHYMA: The giles-white differentiation and deep giles nuclei are maintained. There is no acute parenchymal hemorrhage. There is no mass effect, midline shift or edema. The brainstem, cerebellum and skull base regions appear unremarkable. PARANASAL SINUSES AND MASTOID AIR CELLS: Paranasal sinuses are unremarkable. The mastoid air cells are clear. If there is further concern for intracranial pathology or acute stroke, MRI of the brain may be performed for complete assessment. IMPRESSION: No acute intracranial abnormality. Dr. Jacobo discussed the results via phone with Dr. El at 9:32 AM, 11/05/2017 SL: [id number] 11/05/2017 [facility] Abdomen CTA EXAM: CTA abdomen HISTORY: Coiling of right renal artery aneurysm COMPARISON: None TECHNIQUE: Thin collimation axial images obtained of the renal arteries, abdominal aorta with sagittal and coronal reformats and postprocessed 3-D volume rendered images. IV contrast. DLP 1872 FINDINGS: RENAL ARTERIES: Aneurysm coiling with associated marked streak artifact at the right renal hilum. A 1.6 x 1.2 cm aneurysm is present distal to the coils in the upper renal pelvis. A single right and single left renal artery are visualized. Both kidneys demonstrate normal contrast enhancement. Marked cortical scarring of the left kidney and mild-moderate cortical scarring of the right kidney. Tiny cyst right kidney. OTHER SOLID ORGANS: Fatty change of the visualized liver. Cholecystectomy clips. The spleen, adrenals, and pancreas are unremarkable. PERITONEUM AND RETROPERITONEUM: No free fluid. GI TRACT: Nonspecific bowel pattern. IMPRESSION: 1. Coiling of right renal artery aneurysm with significant streak artifact limits evaluation. 1.6 cm aneurysm right renal artery distal to the coils at the renal pelvis. 2. Scarring of both kidneys, left greater than right. 3. Fatty liver. SL: [id number] 07/01/2017 [facility] Brain wo contrast CT Patient Name: TIARRA KING : 1970; Age: 46 years y/o Female MR: [id number] Study: BRAIN WO CONTRAST CT 06/11/2017 6:08 PM CDT Ordering Physician: Donald aJckson Clinical Indication: - Dizziness; Comparison: None TECHNIQUE: CT images were obtained from the foramen magnum to the vertex without the use of intravenous contrast on a multidetector CT. Coronal and sagittal reconstructions were obtained. CT radiation dose DLP: 981.84 mGy FINDINGS: BRAIN PARENCHYMA: There are normal giles-white corticomedullary interfaces, sulci and gyri. There are no focal mass lesions or fluid collections on this noncontrast head CT. There is no mass effect, midline shift or edema. There are no intra-axial or extra-axial fluid collections, intraventricular or intraparenchymal hemorrhage. The pineal, sellar, brainstem, cerebellum and skull base regions appear unremarkable. The white matter, basal ganglia, and posterior cranial fossa including the brainstem are normal. VENTRICLES: CSF spaces are mildly atrophic. The lateral ventricles, third and fourth ventricles appear unremarkable. The basilar cisterns are normal. ORBITS, MASTOIDS AND PARANASAL SINUSES: The visualized orbits are unremarkable. The paranasal sinuses are unremarkable. The mastoid air cells are clear. SKULL: There are no osseous abnormalities. IMPRESSION: Unremarkable normal noncontrast head CT with no trauma, mass, hemorrhage or subacute stroke. SL: [id number] 06/11/2017 [facility] Chest 1view DX Clinical Indication: - htn Comparison: 05/29/2017 FINDINGS: Single AP view of the chest is submitted for interpretation. There is mild pulmonary vascular congestion. The lungs are otherwise clear and there are no effusions. There is no visible pneumothorax. Cardiomediastinal contours are stable. No gross bony normalities are identified. IMPRESSION: 1. Mild pulmonary vascular congestion. SL: ISAEL 06/11/2017 [facility] Chest 2 views DX PA and lateral chest: The cardiomediastinal silhouette, pulmonary vasculature and mikaela are within normal limits. The lungs and pleural spaces are clear. There are no significant osseous abnormalities. T here is no significant change compared to 04/15/2006. IMPRESSION: No acute radiographic abnormalities in the chest. [id number] 05/29/2017 [facility] Consultation Notes No Data Provided for This Section Discharge Summaries No Data Provided for This Section History and Physicals No Data Provided for This Section Vital Signs Vital Sign Value Date Comments Source Respitory Rate 16 11/05/2017 [facility] Systolic (mm Hg) 127 11/05/2017 [facility] Diastolic (mm Hg) 76 11/05/2017 [facility] Respitory Rate 17 11/05/2017 [facility] Temperature Oral (F) 98.5 F 11/05/2017 [facility] BMI Calculated 35.85 11/05/2017 [facility] Weight 97.727 11/05/2017 [facility] Height 165.1 cm 11/05/2017 [facility] Heart Rate 91 11/05/2017 [facility] Respitory Rate 18 11/05/2017 [facility] Systolic (mm Hg) 153 11/05/2017 [facility] Diastolic (mm Hg) 95 11/05/2017 [facility] Temperature Oral (F) 98.6 F 06/12/2017 [facility] Respitory Rate 17 06/12/2017 [facility] Systolic (mm Hg) 161 06/12/2017 [facility] Diastolic (mm Hg) 89 06/12/2017 [facility] Respitory Rate 19 06/12/2017 [facility] Systolic (mm Hg) 151 06/12/2017 [facility] Diastolic (mm Hg) 88 06/12/2017 [facility] Temperature Oral (F) 98.7 F 06/12/2017 [facility] Respitory Rate 15 06/12/2017 [facility] Systolic (mm Hg) 157 06/12/2017 [facility] Diastolic (mm Hg) 84 06/12/2017 [facility] Temperature Oral (F) 98.7 F 06/12/2017 [facility] Heart Rate 70 06/11/2017 [facility] BMI Calculated 39.69 06/11/2017 [facility] Height 165.1 cm 06/11/2017 [facility] Weight 108.182 06/11/2017 [facility] Systolic (mm Hg) 113 06/06/2017 [facility] Diastolic (mm Hg) 64 06/06/2017 [facility] Respitory Rate 18 06/06/2017 [facility] Systolic (mm Hg) 125 06/06/2017 [facility] Diastolic (mm Hg) 76 06/06/2017 [facility] Respitory Rate 18 06/06/2017 [facility] Systolic (mm Hg) 138 06/06/2017 [facility] Diastolic (mm Hg) 78 06/06/2017 [facility] Respitory Rate 21 06/06/2017 [facility] Temperature Oral (F) 98.7 F 06/06/2017 [facility] Temperature Oral (F) 98.5 F 06/06/2017 [facility] Temperature Oral (F) 98.9 F 06/06/2017 [facility] Weight 107.273 06/05/2017 [facility] Heart Rate 76 06/05/2017 [facility] Heart Rate 72 05/29/2017 [facility] BMI Calculated 39.64 05/29/2017 [facility] Weight 108.045 05/29/2017 [facility] Height 165.1 cm 05/29/2017 [facility] Encounters Location Location Details Encounter Type Encounter Number Reason For Visit Attending Provider ADM Date DC Date Status Source [facility] Observation [id number] Humberto Key 06/05/2017 06/06/2017 [facility] Emergency [id number] Maryjo Bjorn 06/11/2017 06/12/2017 [facility] Outpatient [id number] Humberto Key 07/01/2017 07/02/2017 [facility] Emergency [id number] Alexis El 11/05/2017 11/05/2017 [facility] Outpatient [id number] Humberto Key 01/13/2018 01/14/2018 [facility] Procedures Procedure Code Date Perfomer Comments Source Bladder operation<sup>1</sup> 18356387 bladder suspension [facility] section [id number] [facility] Cholecystectomy [id number] [facility] Closed reduction # arm<sup>2</sup> [id number] right wrist [facility] Hysterectomy [id number] [facility] In vitro fertilization [id number] [facility] Laparoscopy<sup>3</sup> 84899231 X5 [facility] Laparotomy<sup>4</sup> 26231533 X2 [facility] Partial hysterectomy [id number] [facility] Assessment and Plan Assessment and Plan Date Source Extracted from:Title: Clinical Document Author: Humberto Key MD Date: 06/06/17 VASCULAR SURGERY PROGRESS NOTE SUBJECTIVE -Doing well. OBJECTIVE - Vitals Tmp(F) Tmp(C) Ttype BP MAP Pulse RR SpO2 FIO2 ETCO2 06/06 03:00 98.5 36.94 oral ----- --- --- -- --- --- --- 06/06 00:21 ---- ---- ---- ----- --- --- -- 97 --- --- 06/06 00:00 ---- ---- ---- 137/77 93 76 20 --- --- --- 06/05 23:00 98.9 37.17 oral 142/87 103 68 18 --- --- --- 06/05 22:00 ---- ---- ---- 135/79 96 69 17 --- --- --- 24 Hr Tmax: 98.9F (37.17c) at 06/05 23:00 Vital Signs are the last 5 in the past 48 hours. 24 Hr Tmin: 97.8F (36.56c) at 06/05 10:46 Weights are the last 5 in 60 days, plus initial. Date Wt(kg) Wt(lb) Ht(cm) Ht(in) Method BMI BSA 06/05 107.27 236.00 Measured 05/29 (initial) 108.05 237.70 Measured 39.6 2.23 05/29 165.10 65.00 Stated (no point of care glucose results charted in last 24 hours) Most Recent Scores: 06/06/17 Pain Intensity NRS (0-10) 0 06/06/17 [place] Coma Score 15 06/05/17 [place] Fall Score 15 Lines, Tubes, and Drains: 06/05/2017 14:00 Peripheral Lines: Hand Right 18 gauge Over the needle catheter 06/05/2017 10:56 Peripheral Lines: Hand Left 20 gauge Over the needle catheter Surgical Procedures: 06/05/17 12:35 COIL EMBOLIZATION / STENT GRAFT, RENAL ARTERY ANEURYSM, RT [id number] Primary Surgeon: Humberto Key MD (Service: CVT) I/O Intake Output Balance 06/05/2017 7a-3p 1524.00 20.00 1504.00 3p-11p 6.00 0.00 6.00 11p-7a 1.00 0.00 1.00 Totals 1531.00 20.00 1511.00 As of 06:29 06/04/2017 7a-3p 0.00 0.00 0.00 3p-11p 0.00 0.00 0.00 11p-7a 0.00 0.00 0.00 Totals 0.00 0.00 0.00 EXAM: - General: AAO Chest: Clear to ausculation Abdomen: Soft, nontender, No peritoneal signs Vascular Exam: Rt. groin - no hematoma foot warm and pink Cr. 0.9 HgB 10.4 PLAN and TREATMENT D/C to home F/U in office in 2 weeks 06/06/2017 [facility] Plan of Care No Data Provided for This Section Social History Social History Date Source Social History TypeResponse Substance Abuse Use: None. Alcohol Past Smoking Status Never smoker; Exposure to Tobacco Smoke None; Cigarette Smoking Last 365 Days No; Reg Smoking Cessation Counseling No entered on: 11/05/17 05/29/2017 [facility] Family History No Data Provided for This Section Advance Directives No Data Provided for This Section Functional Status No Data Provided for This Section
--- OUTSIDE RECORDS SUMMARY | 2018-11-21 07:58 | XMS REPORT | Summary of Care ---
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) - 11/13/17 Jaw pain (Final) - NIHSS score 2 (Final) - Dysarthria and anarthria (Final) - Essential (primary) hypertension (Final) - Aneurysm of unspecified site (Final) - Major depressive disorder, single episode, unspecified (Final) - Unspecified asthma, uncomplicated (Final) - Endometriosis, unspecified (Final) - Gastro-esophageal reflux disease without esophagitis (Final) - Irritable bowel syndrome without diarrhea (Final) - Acquired absence of other specified parts of digestive tract (Final) - Acquired absence of both cervix and uterus (Final) - Discharge Disposition: Home or Self Care Attending Physician: Alexis El MD Vital Signs 1 2 3 Most recent to oldest [Reference Range]: 165.1 cm (11/05/17 9:12 AM) Height 98.5 DegF (11/05/17 9:12 AM) Temperature Oral [96.4-99.1 DegF] 127/76 mmHg (11/05/17 12:30 PM) 153/95 mmHg *HI* (11/05/17 9:12 AM) Blood Pressure [90-140/60-90 mmHg] 16 BRMIN (11/05/17 12:30 PM) 17 BRMIN (11/05/17 9:35 AM) 18 BRMIN (11/05/17 9:12 AM) Respiratory Rate [14-20 BRMIN] 91 bpm (11/05/17 9:12 AM) Peripheral Pulse Rate [60-100 bpm] 97.727 kg (11/05/17 9:12 AM) Weight 35.85 m2 (11/05/17 9:12 AM) Body Mass Index Problem List Condition Effective Dates Status Health Status Informant Acute Resolved bronchitis(Confirmed ) Allergic Resolved eczema(Confirmed) Aneurysm of renal Active artery(Confirmed) Asthma(Confirmed) Active Back pain with Active sciatica(Confirmed) Bacterial Resolved pneumonia(Confirmed) Fluid Active retention(Confirmed) Chronic neck and Active back pain(Confirmed) Depression(Confirmed Active ) Disorder of urinary Active tract(Confirmed) Endometriosis(Confir Active med) Environmental Active allergies(Confirmed) Acid Active reflux(Confirmed) Genital Resolved herpes(Confirmed) Hernia, Active hiatal(Confirmed) HTN Active (hypertension)(Confi rmed) IBS (irritable bowel Active syndrome)(Confirmed) Poor circulation of Active extremity(Confirmed) Allergies, Adverse Reactions, Alerts Substance Reaction Severity Status codeine Active Toradol Active Dilaudid Active Vicodin Active Tape Active traMADol Active HYDROcodone Active Medications ibuprofen 800 mg, Route: PO, Drug form: TAB, ONCE, Dosing Weight 97.727, kg, Priority: STA T, Start date: 11/05/17 10:46:00 CDT, Stop date: 11/05/17 10:46:00 CDT Start Date: 11/05/17 Stop Date: 11/05/17 Status: Completed predniSONE 20 mg oral tablet See Special Instructions, PO, Daily, 16 day regimen: Days 1-4 - 40 mg (2 tabs) d aily Days 5-8 - 30 mg (1 1/2 tabs) daily Days 9-12 - 20 mg (1 tab) daily Day 13 -16 - 10 mg (1/2 tab) daily, X 16 day, # 24 tab, 0 Refill(s) Start Date: 11/05/17 Stop Date: 11/21/17 Status: Completed Saline Flush 0.9% 10 mL, Route: IVP, Drug Form: INJ, Dosing Weight 97.727, kg, PRN, PRN Line Flush , Start date: 11/05/17 9:29:00 CDT, Duration: 30 day, Stop date: 12/05/17 9:28:0 0 CDT Notes: Same as: BD Posiflush Sterile Start Date: 11/05/17 Stop Date: 11/05/17 Status: Discontinued valACYclovir 1 g oral tablet 1 gm=1 tab, PO, Q8H, X 14 day, # 42 tab, 0 Refill(s) Start Date: 11/05/17 Stop Date: 11/19/17 Status: Completed Results ELECTROLYTES Most recent to 1 2 oldest [Reference Range]: Sodium Lvl [135-145 143 mEq/L mEq/L] (11/05/17 9:32 AM) Potassium Lvl 3.8 mEq/L [3.5-5.1 mEq/L] (11/05/17 9:32 AM) Chloride Lvl [95-109 105 mEq/L mEq/L] (11/05/17 9:32 AM) CO2 [24-32 mEq/L] 27 mEq/L (11/05/17 9:32 AM) AGAP [10.0-20.0 14.8 mEq/L mEq/L] (11/05/17 9:32 AM) CHEM PANEL Most recent to 1 2 oldest [Reference Range]: Creatinine Lvl 0.90 mg/dL [0.50-1.40 mg/dL] (11/05/17 9:32 AM) eGFR 88 mL/min/1.73m2 1 77 mL/min/1.73m2 2 *NA* *NA* (11/05/17 9:33 AM) (11/05/17 9:32 AM) BUN [7-22 mg/dL] 14 mg/dL (11/05/17 9:32 AM) Glucose Lvl [70-99 118 mg/dL mg/dL] *HI* (11/05/17 9:32 AM) POC Creatinine 0.8 mg/dL [0.5-1.4 mg/dL] (11/05/17 9:33 AM) Calcium Lvl 8.3 mg/dL [8.5-10.5 mg/dL] *LOW* (11/05/17 9:32 AM) 1Result Comment: The eGFR is calculated using the [...] from the National Kidney Disease Education Program ( NKDEP) which additionally recommends that when the eGFR is used in patients with extremes of body mass index for purposes of drug dosing, the eGFR should be mul tiplied by the estimated BMI. 2Result Comment: The eGFR is calculated using the [...] from the National Kidney Disease Education Program ( NKDEP) which additionally recommends that when the eGFR is used in patients with extremes of body mass index for purposes of drug dosing, the eGFR should be mul tiplied by the estimated BMI. CARDIAC ENZYMES Most recent to 1 2 oldest [Reference Range]: Total CK [12-191 76 unit/L unit/L] (11/05/17 9:32 AM) Troponin-I <0.02 ng/mL [0.00-0.40 ng/mL] (11/05/17 9:32 AM) HEMATOLOGY Most recent to 1 2 oldest [Reference Range]: WBC [3.7-10.4 K/CMM] 8.9 K/CMM (11/05/17 9:32 AM) RBC [4.20-5.40 4.43 M/CMM M/CMM] (11/05/17 9:32 AM) Hgb [12.0-16.0 g/dL] 11.2 g/dL *LOW* (11/05/17 9:32 AM) Hct [36.0-48.0 %] 34.7 % *LOW* (11/05/17 9:32 AM) MCV [80.0-98.0 fL] 78.2 fL *LOW* (11/05/17 9:32 AM) MCH [27.0-31.0 pg] 25.4 pg *LOW* (11/05/17 9:32 AM) MCHC [32.0-36.0 32.4 g/dL g/dL] (11/05/17 9:32 AM) RDW [11.5-14.5 %] 16.2 % *HI* (11/05/17 9:32 AM) MPV [7.4-10.4 fL] 8.3 fL (11/05/17 9:32 AM) Platelet [133-450 347 K/CMM K/CMM] (11/05/17 9:32 AM) Segs [45.0-75.0 %] 69.7 % (11/05/17 9:32 AM) Lymphocytes 20.4 % [20.0-40.0 %] (11/05/17 9:32 AM) Monocytes [2.0-12.0 8.2 % %] (11/05/17 9:32 AM) Eosinophils [0.0-4.0 1.3 % %] (11/05/17 9:32 AM) Basophils [0.0-1.0 0.4 % %] (11/05/17 9:32 AM) Neutrophils # 6.2 K/CMM [1.5-8.1 K/CMM] (11/05/17 9:32 AM) Lymphocytes # 1.8 K/CMM [1.0-5.5 K/CMM] (11/05/17 9:32 AM) Monocytes # [0.0-0.8 0.7 K/CMM K/CMM] (11/05/17 9:32 AM) Eosinophils # 0.1 K/CMM [0.0-0.5 K/CMM] (11/05/17 9:32 AM) Microcyte [None 1+ Seen] *ABN* (11/05/17 9:32 AM) PT [12.0-14.7 12.5 seconds seconds] (11/05/17 9:32 AM) INR [0.85-1.17] 0.93 (11/05/17 9:32 AM) PTT [22.9-35.8 35.1 seconds seconds] (11/05/17 9:32 AM) Immunizations No data available for this section Procedures Procedure Date Related Diagnosis Body Site Status Bladder operation1 Completed section Completed Cholecystectomy Completed Closed reduction # arm2 Completed Hysterectomy Completed In vitro fertilization Completed Laparoscopy3 Completed Laparotomy4 Completed Partial hysterectomy Completed 1bladder suspension 2right wrist 3X5 4X2 Social History Social History Type Response Substance Abuse Use: None. Alcohol Past Smoking Status Never smoker; Exposure to Tobacco Smoke None; Cigarette Smoking Last 365 Days No; Reg Smoking Cessation Counseling No entered on: 11/05/17 Assessment and Plan No data available for this section
--- OUTSIDE RECORDS SUMMARY | 2018-11-21 07:58 | XMS REPORT ---
Author Author [facility] Address Unknown Phone Unavailable Care Team Providers Care Retrofit Installer Name Role Phone MAXIM MENDEZ Unavailable Unavailable Problems This patient has no known problems. Allergies, Adverse Reactions, Alerts This patient has no known allergies or adverse reactions. Medications This patient has no known medications. Results Test Description Test Time Test Comments Text Results Atomic Results Result Comments CHEST 2 VIEWS 2018-11-18 17:52:00 [place] [address] Patient Name: TIARRA KING MR #: [id number] : 1970 Age/Sex: 48/F Req #: [id number] Adm Physician: Ordered by: MAXIM MENDEZ DPM Report #: [id number] Location: OR Room/Bed: Procedure: [id number] DX/CHEST 2 VIEWS Exam Date: 11/18/18 Exam Time: 1740 REPORT STATUS: Signed Frontal and lateral views of the chest. HISTORY: Preop, hysterectomy COMPARISON: None available. DISCUSSION: Soft tissue attenuation partially limits sensitivity of the exam. Lungs: Low lung volumes result in bibasilar vascular crowding, accentuation of the pulmonary interstitial markings, central pulmonary vasculature, and the cardiac silhouette. Allowing for these limitations, the findings are as follows: No evidence of a consolidative pneumonia or pulmonary alveolar edema. Pleura: No pleural effusion or pneumothorax. Heart and mediastinum: The cardiomediastinal silhouette appear(s) unremarkable. Bones and soft tissues: Mild accentuation of the thoracic kyphosis and multilevel minimal degenerative disc changes. Cholecystectomy clips. IMPRESSION: No acute radiographic abnormality. Signed by: Dr. Mickie Hernandez D.O., M.M.M. on 11/18/2018 5:54 PM Dictated By: MICKIE HERNANDEZ DO 53 Transcribed By: MARY on 11/18/181753 COPY TO: MAXIM MENDEZ DPM SCR MAMM BILATERAL EMELINA CAD DIGITAL 2018-01-23 17:06:31 - SCR MAMM BILATERAL EMELINA CAD DIGITALBILATERAL DIGITAL SCREENING MAMMOGRAM 3D/2D WITH CAD: 01/23/2018CLINICAL: Asymptomatic. Digital breast tomosynthesis was performed in addition to routine CC and MLO views. Current mammographic images were evaluated by either a [employer] M-Vu or a [employer] CAD (computer aided detection system). Comparison is made to exams dated 06/07/2016 mammogram - [facility], 02/10/2014 mammogram, and 02/06/2013 mammogram - [facility]. The tissue of both breasts is heterogeneously dense. This may lower the sensitivity of mammography. No suspicious mass, architectural distortion, malignant type calcification, or lymph node abnormality detected. Breast architecture is stable compared to prior exams.IMPRESSION: NEGATIVEThere is no mammographic evidence of malignancy. Resume annual screening mammography in one year. Mitra gage/craig:01/23/2018 17:06:31 Camp Nurse: Mariia BHATT, [facility] sent: BIRADS 1-2 Normal Mammogram BI-RADS: 1 Negative
--- OUTSIDE RECORDS SUMMARY | 2018-11-21 07:58 | XMS REPORT | Summary of Care ---
Author Author [facility] Organization [facility] Address Unknown Phone Unavailable Encounter HQ Soumya(FIN) [id number] Date(s): 01/13/18 - 01/13/18 [facility] [address] [place] [address]- [phone] Encounter Diagnosis Aneurysm of renal artery (Final) - 01/17/18 Atrophy of kidney (terminal) (Final) - Fatty (change of) liver, not elsewhere classified (Final) - Discharge Disposition: Home or Self Care Attending Physician: Humberto Key MD Admitting Physician: Humberto Key MD Referring Physician: Humberto Key MD Vital Signs No data available for this section Problem List Condition Effective Dates Status Health [...] Tape Active traMADol Active HYDROcodone Active Medications Omnipaque 350 injectable solution 100 mL, 0 ml/hr, Route: IV, Drug Form: SOLN, Dosing Weight 97.727, kg, ONCALL, F or CTA exam with GFR > 45 mL/min, Start date: 01/13/18 11:00:00 FIELD CASHIER, Duration: 1 doses or times Notes: (same as:Omnipaque 350).WASTE: F/P - Black; E - Municipal Trash Bin Start Date: 01/13/18 Status: Ordered Results Most recent to 1 oldest [Reference Range]: eGFR 88 mL/min/1.73m2 1 *NA* (01/13/18 11:23 AM) POC Creatinine 0.8 mg/dL [0.5-1.4 mg/dL] (01/13/18 11:23 AM) 1Result Comment: The eGFR is calculated [...] be mul tiplied by the estimated BMI. Immunizations No data available for this section [...]
--- OUTSIDE RECORDS SUMMARY | 2018-11-21 07:58 | XMS REPORT | Summary of Care ---
Author Author [facility] Organization [facility] Address Unknown Phone Unavailable Encounter MARVEL Dooley(LÁZARO) [id number] Date(s): 07/01/17 - 07/01/17 [facility] [address] [place] [address]- Discharge Disposition: Home or Self Care Attending Physician: Humberto Key MD Referring Physician: Humberto [...] Active traMADol Active HYDROcodone Active Medications Omnipaque 300 100 mL, 0.5 ml/hr, Route: IV, Drug Form: SOLN, ONCALL, Start date: 07/01/17 12:0 0:00 CDT, Duration: 1 day, Stop date: 07/02/17 11:59:00 CDT Notes: (Same as:Omnipaque 300).WASTE: F/P - Black; E - Municipal Trash Bin Start Date: 07/01/17 Stop Date: 07/02/17 Status: Completed Results CHEM PANEL Most recent to 1 oldest [Reference Range]: eGFR 60 mL/min/1.73m2 1 *NA* (07/01/17 10:52 AM) POC Creatinine 1.1 mg/dL [0.5-1.4 mg/dL] (07/01/17 10:52 AM) 1Result Comment: The eGFR is calculated [...] Reg Smoking Cessation Counseling No entered on: 06/12/17 Assessment and Plan No data available for this section
--- OUTSIDE RECORDS SUMMARY | 2018-11-21 07:58 | XMS REPORT | Summary of Care ---
Author Author [facility] Organization [facility] Address Unknown Phone Unavailable Encounter HQ Soumya(FIN) [id number] Date(s): 06/11/17 - 06/12/17 [facility] [address] [place] [address]- [phone] Encounter Diagnosis Dizziness (Discharge Diagnosis) - 06/12/17 Hypertension (Discharge Diagnosis) - 06/12/17 Discharge Disposition: Home or Self Care Attending Physician: Maryjo Milan DO Vital Signs 1 2 3 Most recent to oldest [Reference Range]: 165.1 cm (06/11/17 6:01 PM) Height 98.6 DegF (06/12/17 4:43 AM) 98.7 DegF (06/12/17 3:31 AM) 98.7 DegF (06/12/17 2:35 AM) Temperature Oral [96.4-99.1 DegF] 161/89 mmHg *HI* (06/12/17 4:43 AM) 151/88 mmHg *HI* (06/12/17 3:31 AM) 157/84 mmHg *HI* (06/12/17 2:35 AM) Blood Pressure [90-140/60-90 mmHg] 17 BRMIN (06/12/17 4:43 AM) 19 BRMIN (06/12/17 3:31 AM) 15 BRMIN (06/12/17 2:35 AM) Respiratory Rate [14-20 BRMIN] 70 bpm (06/11/17 6:01 PM) Peripheral Pulse Rate [60-100 bpm] 108.182 kg (06/11/17 6:01 PM) Weight 39.69 m2 (06/11/17 6:01 PM) Body Mass Index Problem List Condition Effective [...] Tape Active traMADol Active HYDROcodone Active Medications Benadryl 25 mg, Route: IVP, ONCE, Dosing Weight 108.182, kg, Priority: STAT, Start date: 06/12/17 4:04:00 CDT, Stop date: 06/12/17 4:04:00 CDT Start Date: 06/12/17 Stop Date: 06/12/17 Status: Completed fentaNYL 50 microgram, Route: IVP, ONCE, Dosing Weight 108.182, kg, Priority: STAT, Start date: 06/12/17 2:55:00 CDT, Stop date: 06/12/17 2:55:00 CDT Start Date: 06/12/17 Stop Date: 06/12/17 Status: Completed hydrALAZINE 10 mg, 0.5 mL, Route: IVP, Drug form: INJ, ONCE, Dosing Weight 108.182, kg, Prio rity: STAT, Start date: 06/12/17 0:51:00 CDT, Stop date: 06/12/17 0:51:00 CDT Notes: (Same as: Apresoline)Push over 5 minutes Start Date: 06/12/17 Stop Date: 06/12/17 Status: Completed Reglan 10 mg, Route: IVP, Drug form: INJ, ONCE, Dosing Weight 108.182, kg, Priority: ST AT, Start date: 06/12/17 4:04:00 CDT, Stop date: 06/12/17 4:04:00 CDT Start Date: 06/12/17 Stop Date: 06/12/17 Status: Completed Saline Flush 0.9% 10 mL, Route: IVP, Drug Form: INJ, Dosing Weight 108.182, kg, PRN, PRN Line Flus h, Start date: 06/11/17 18:08:00 CDT, Duration: 30 day, Stop date: 07/11/17 18:0 7:00 CDT Notes: (Same as: BD Posiflush) Start Date: 06/11/17 Stop Date: 06/12/17 Status: Discontinued Results ELECTROLYTES Most recent to 1 oldest [Reference Range]: Sodium Lvl [135-145 144 mEq/L mEq/L] (06/12/17 12:36 AM) Potassium Lvl 3.2 mEq/L [3.5-5.1 mEq/L] *LOW* (06/12/17 12:36 AM) Chloride Lvl [95-109 106 mEq/L mEq/L] (06/12/17 12:36 AM) CO2 [24-32 mEq/L] 31 mEq/L (06/12/17 12:36 AM) AGAP [10.0-20.0 10.2 mEq/L mEq/L] (06/12/17 12:36 AM) CHEM PANEL Most recent to 1 oldest [Reference Range]: Creatinine Lvl 0.78 mg/dL [0.50-1.40 mg/dL] (06/12/17 12:36 AM) eGFR 92 mL/min/1.73m2 1 *NA* (06/12/17 12:36 AM) BUN [7-22 mg/dL] 16 mg/dL (06/12/17 12:36 AM) B/C Ratio [6-25] 21 (06/12/17 12:36 AM) Glucose Lvl [70-99 91 mg/dL mg/dL] (06/12/17 12:36 AM) Total Protein 7.1 g/dL [6.4-8.4 g/dL] (06/12/17 12:36 AM) Albumin Lvl [3.5-5.0 2.8 g/dL g/dL] *LOW* (06/12/17 12:36 AM) Globulin [2.7-4.2 4.3 g/dL g/dL] *HI* (06/12/17 12:36 AM) A/G Ratio [0.7-1.6] 0.7 (06/12/17 12:36 AM) Calcium Lvl 8.4 mg/dL [8.5-10.5 mg/dL] *LOW* (06/12/17 12:36 AM) ALT [0-65 unit/L] 20 unit/L (06/12/17 12:36 AM) AST [0-37 unit/L] 18 unit/L (06/12/17 12:36 AM) Alk Phos [39-136 105 unit/L unit/L] (06/12/17 12:36 AM) Bili Total [0.2-1.3 0.2 mg/dL mg/dL] (06/12/17 12:36 AM) 1Result Comment: The eGFR is calculated [...] BMI. CARDIAC ENZYMES Most recent to 1 oldest [Reference Range]: Total CK [12-191 40 unit/L unit/L] (06/12/17 12:36 AM) CK MB [0.5-3.6 <0.5 ng/mL ng/mL] (06/12/17 12:36 AM) CK MB Index <1.2 [0.0-2.5] (06/12/17 12:36 AM) Troponin-I <0.02 ng/mL [0.00-0.40 ng/mL] (06/12/17 12:36 AM) BNP [<=100 pg/mL] 236 pg/mL *HI* (06/12/17 12:36 AM) HEMATOLOGY Most recent to 1 oldest [Reference Range]: WBC [3.7-10.4 K/CMM] 10.3 K/CMM (06/12/17 12:36 AM) RBC [4.20-5.40 4.21 M/CMM M/CMM] (06/12/17 12:36 AM) Hgb [12.0-16.0 g/dL] 10.1 g/dL *LOW* (06/12/17 12:36 AM) Hct [36.0-48.0 %] 32.3 % *LOW* (06/12/17 12:36 AM) MCV [80.0-98.0 fL] 76.6 fL *LOW* (06/12/17 12:36 AM) MCH [27.0-31.0 pg] 24.0 pg *LOW* (06/12/17 12:36 AM) MCHC [32.0-36.0 31.4 g/dL g/dL] *LOW* (06/12/17 12:36 AM) RDW [11.5-14.5 %] 16.5 % *HI* (06/12/17 12:36 AM) MPV [7.4-10.4 fL] 8.6 fL (06/12/17 12:36 AM) Platelet [133-450 334 K/CMM K/CMM] (06/12/17 12:36 AM) Segs [45.0-75.0 %] 66.5 % (06/12/17 12:36 AM) Lymphocytes 23.9 % [20.0-40.0 %] (06/12/17 12:36 AM) Monocytes [2.0-12.0 9.1 % %] (06/12/17 12:36 AM) Eosinophils [0.0-4.0 0.1 % %] (06/12/17 12:36 AM) Basophils [0.0-1.0 0.4 % %] (06/12/17 12:36 AM) Segs-Bands # 6.9 K/CMM [1.5-8.1 K/CMM] (06/12/17 12:36 AM) Lymphocytes # 2.5 K/CMM [1.0-5.5 K/CMM] (06/12/17 12:36 AM) Monocytes # [0.0-0.8 0.9 K/CMM K/CMM] *HI* (06/12/17 12:36 AM) Microcyte [None 1+ Seen] *ABN* (06/12/17 12:36 AM) PT [12.0-14.7 12.3 seconds seconds] (06/12/17 12:36 AM) INR [0.85-1.17] 0.91 (06/12/17 12:36 AM) PTT [22.9-35.8 32.9 seconds seconds] (06/12/17 12:36 AM) Immunizations No data available for this [...]
--- OUTSIDE RECORDS SUMMARY | 2018-11-21 07:58 | XMS REPORT | Summary of Care ---
Author Author [facility] Organization [facility] Address Unknown Phone Unavailable Encounter HQ Soumya(FIN) [id number] Date(s): 11/05/17 - 11/05/17 [facility] [address] [place] [address]- [phone] Encounter Diagnosis Woodruff's palsy (Discharge Diagnosis) - [...]
--- OUTSIDE RECORDS SUMMARY | 2018-11-21 07:58 | XMS REPORT | Summary of Care ---
Author Author [facility] Organization [facility] Address Unknown Phone Unavailable Encounter MARVEL Dooley(LÁZARO) [id number] Date(s): 06/05/17 - 06/06/17 [facility] [address] [place] [address]- Discharge Disposition: Home or Self Care Attending Physician: Humberto Key MD Admitting Physician: Humberto Key MD Referring Physician: Humberto Key MD Vital Signs 1 2 3 Most recent to oldest [Reference Range]: 165.1 cm (05/29/17 10:32 AM) Height 98.7 DegF (06/06/17 8:04 AM) 98.5 DegF (06/06/17 3:00 AM) 98.9 DegF (06/05/17 11:00 PM) Temperature Oral [96.4-99.1 DegF] 113/64 mmHg (06/06/17 11:00 AM) 125/76 mmHg (06/06/17 10:00 AM) 138/78 mmHg (06/06/17 9:00 AM) Blood Pressure [90-140/60-90 mmHg] 18 BRMIN (06/06/17 11:00 AM) 18 BRMIN (06/06/17 10:00 AM) 21 BRMIN *HI* (06/06/17 9:00 AM) Respiratory Rate [14-20 BRMIN] 76 bpm (06/05/17 10:46 AM) 72 bpm (05/29/17 11:31 AM) Peripheral Pulse Rate [60-100 bpm] 107.273 kg (06/05/17 4:13 PM) 108.045 kg (05/29/17 10:32 AM) Weight 39.64 m2 (05/29/17 10:32 AM) Body Mass Index Problem List Condition [...] Tape Active traMADol Active HYDROcodone Active Medications *Remind pt to bring home med Citrucel* *Remind pt to bring home med Citrucel*, Reminder, Drug form: MISC, Route: MISC, QSROXANN, 06/06/17 0:00:00 CDT, Duration: 30 day, Stop date: 07/05/17 16:00:00 CDT Start Date: 06/06/17 Stop Date: 06/06/17 Status: Discontinued acetaminophen (ANES) 10 mg Route: IV, Drug form: INJ, Start date: 06/05/17 13:09:00 CDT, Stop date: 8 14:09:00 CDT Start Date: 06/05/17 Stop Date: 06/05/17 Status: Completed albuterol-ipratropium 2.5-0.5 mg inhalation solution 3 mL, Route: NEB, Drug Form: SOLN, Dosing Weight 108.045, kg, ONCE, STAT, Start date: 06/05/17 10:35:00 CDT, Stop date: 06/05/17 10:35:00 CDT Notes: (Same as: Cathleenb) Start Date: 06/05/17 Stop Date: 06/06/17 Status: Completed Ancef + sterile water 20 mL 2 gm, Route: IV, PRE OP, kg, Start date: 05/29/17 11:00:00 CDT, Duration: 1 day, Stop date: 05/30/17 10:59:00 CDT, ABX Indication: Surgical Prophylaxis Notes: (Same As: AncefMax) MEDICATION WASTE Product Size: 1000 mgP roduct Wasted: __0_ mg Start Date: 05/29/17 Stop Date: 05/30/17 Status: Completed ANES albuterol 0.083% inhalation solution 2.49 mg, Route: NEB, Q20Min, Dosing Weight 108.045, kg, PRN Wheezing, Priority: STAT, Start date: 06/05/17 14:40:00 CDT, Duration: 30 day, Stop date: 07/05/17 1 4:39:00 CDT Start Date: 06/05/17 Stop Date: 06/05/17 Status: Discontinued ANES diphenhydrAMINE 12.5 mg, Route: IVP, Drug form: INJ, Q6H, Dosing Weight 108.045, kg, PRN Itching , Start date: 06/05/17 14:40:00 CDT, Duration: 30 day, Stop date: 07/05/17 14:39 :00 CDT Start Date: 06/05/17 Stop Date: 06/05/17 Status: Discontinued ANES esmolol 10 mg, Route: IVP, Q5Min, Dosing Weight 108.045, kg, PRN Other -See Comment, Sta rt date: 06/05/17 14:40:00 CDT, Duration: 5 doses or times, Stop date: Limited # of times Start Date: 06/05/17 Stop Date: 06/05/17 Status: Discontinued ANES fentaNYL 50 microgram, Route: IVP, Q5Min, Dosing Weight 108.045, kg, PRN Pain Score 7-10, Priority: Routine, Start date: 06/05/17 14:40:00 CDT, Duration: 2 doses or time s, Stop date: Limited # of times Start Date: 06/05/17 Stop Date: 06/05/17 Status: Discontinued ANES fentaNYL 25 microgram, Route: IVP, Q5Min, Dosing Weight 108.045, kg, PRN Pain Score 4-6, Priority: Routine, Start date: 06/05/17 14:40:00 CDT, Duration: 4 doses or times , Stop date: Limited # of times Start Date: 06/05/17 Stop Date: 06/05/17 Status: Discontinued ANES flumazenil 0.2 mg, Route: IVP, PRN, Dosing Weight 108.045, kg, PRN Benzodiazepine Reversal, Initial dose, Start date: 06/05/17 14:40:00 CDT, Duration: 30 day, Stop date: 0 07/05/17 14:39:00 CDT Start Date: 06/05/17 Stop Date: 06/05/17 Status: Discontinued ANES hydrALAZINE 10 mg, Route: IVP, Q20Min, Dosing Weight 108.045, kg, PRN Elevated BP, Start rupal e: 06/05/17 14:40:00 CDT, Duration: 2 doses or times, Stop date: Limited # of ti mes Start Date: 06/05/17 Stop Date: 06/05/17 Status: Discontinued ANES labetalol 10 mg, Route: IVP, Q5Min, Dosing Weight 108.045, kg, PRN Elevated BP, Start date : 06/05/17 14:40:00 CDT, Duration: 5 doses or times, Stop date: Limited # of viky es Start Date: 06/05/17 Stop Date: 06/05/17 Status: Discontinued ANES naloxone 0.4 mg, Route: IVP, Q2MIN, Dosing Weight 108.045, kg, PRN Narcotic Reversal, Sta rt date: 06/05/17 14:40:00 CDT, Duration: 8 doses or times, Stop date: Limited # of times Start Date: 06/05/17 Stop Date: 06/05/17 Status: Discontinued ANES ondansetron 4 mg, Route: IVP, ONCE, Dosing Weight 108.045, kg, PRN Nausea & Vomiting, Start date: 06/05/17 14:40:00 CDT Start Date: 06/05/17 Stop Date: 06/05/17 Status: Discontinued ANES promethazine 6.25 mg, Route: IVPB, ONCE, Dosing Weight 108.045, kg, PRN Nausea & Vomiting, Start date: 06/05/17 14:40:00 CDT Start Date: 06/05/17 Stop Date: 06/05/17 Status: Discontinued Benadryl 50 mg, 2 tab, Route: PO, Drug form: TAB, Q8H, Dosing Weight 108.045, kg, PRN Itc ignacio, Start date: 06/05/17 14:55:00 CDT, Duration: 30 day, Stop date: 07/05/17 1 4:54:00 CDT Start Date: 06/05/17 Stop Date: 06/06/17 Status: Discontinued Benadryl See Instructions, 0 Refill(s) Start Date: 05/29/17 Status: Ordered ceFAZolin (ANES) Route: IV, Drug form: INJ, ONCE, Stop date: 06/05/17 13:19:00 CDT Start Date: 06/05/17 Stop Date: 06/05/17 Status: Completed Citrucel 2 g/19 g oral powder 2 gm, Route: PO, Drug form: PDR/REC, TID, Dosing Weight 108.045, kg, Start date: 06/05/17 17:00:00 CDT, Duration: 30 day, Stop date: 07/05/17 13:00:00 CDT Start Date: 06/05/17 Stop Date: 06/06/17 Status: Discontinued Citrucel 2 g/19 g oral powder 2 gm, PO, TID, 0 Refill(s) Start Date: 05/29/17 Status: Ordered clobetasol topical 0.05% cream 1 appl, TOP, BID, 0 Refill(s) Start Date: 05/29/17 Status: Ordered clobetasol topical 0.05% cream 1 appl, Route: TOP, BID, Drug form: CRM, Start date: 06/05/17 17:00:00 CDT, Dura tion: 30 day, Stop date: 07/05/17 9:00:00 CDT Notes: 15 gm tube(Same As: Temovate) Start Date: 06/05/17 Stop Date: 06/06/17 Status: Discontinued Dymista 137 mcg-50 mcg/inh nasal spray 2 spray, NASAL, BID, # 23 gm, 1 Refill(s) Start Date: 05/29/17 Stop Date: 06/28/17 Status: Ordered escitalopram 20 mg, 2 tab, Route: PO, Drug form: TAB, Daily, Dosing Weight 108.045, kg, Start date: 06/06/17 9:00:00 CDT, Duration: 30 day, Stop date: 07/05/17 9:00:00 CDT Notes: (Same as: Lexapro) Start Date: 06/06/17 Stop Date: 06/06/17 Status: Discontinued escitalopram 20 mg oral tablet 20 mg=1 tab, PO, Daily, # 30 tab, 0 Refill(s) Start Date: 05/29/17 Status: Ordered estradiol 1 mg oral tablet 1 mg=1 tab, PO, Daily, # 30 tab, 0 Refill(s) Start Date: 05/29/17 Status: Ordered estradiol 1 mg oral tablet 1 mg, 1 tab, Route: PO, Drug form: TAB, Daily, Dosing Weight 108.045, kg, Start date: 06/06/17 9:00:00 CDT, Duration: 30 day, Stop date: 07/05/17 9:00:00 CDT Start Date: 06/06/17 Stop Date: 06/06/17 Status: Discontinued Eye Itch Relief 1 drp, BOTH EYES, Q8H, 0 Refill(s) Start Date: 05/29/17 Status: Ordered Eye Itch Relief 1 drp, Route: BOTH EYES, Drug Form: SOLN, Dosing Weight 108.045, kg, Q8H, Start date: 06/05/17 16:00:00 CDT, Duration: 30 day, Stop date: 07/05/17 8:00:00 CDT Notes: (Same as:Zaditor) Start Date: 06/05/17 Stop Date: 06/06/17 Status: Discontinued fentaNYL (ANES) Route: IV, Drug form: INJ, ONCE, Stop date: 06/05/17 13:19:00 CDT Start Date: 06/05/17 Stop Date: 06/05/17 Status: Completed furosemide See Instructions, WED-SAT only, 0 Refill(s) Start Date: 05/29/17 Status: Ordered glycopyrrolate (ANES) Route: IV, Drug form: INJ, ONCE, Stop date: 06/05/17 13:45:00 CDT Start Date: 06/05/17 Stop Date: 06/05/17 Status: Completed heparin (ANES) Route: IV, Drug form: INJ, ONCE, Stop date: 06/05/17 13:19:00 CDT Start Date: 06/05/17 Stop Date: 06/05/17 Status: Completed ibuprofen 800 mg oral tablet 800 mg=1 tab, PO, Q8H, PRN Pain, Take with food, # 30 tab, 0 Refill(s) Start Date: 05/29/17 Status: Ordered Lactated Ringers Injection IV (ANES) 1000 mL Route: IV, Total Volume: 1,000, Start date: 06/05/17 11:58:00 CDT, Stop date: 12:58:00 CDT Start Date: 06/05/17 Stop Date: 06/05/17 Status: Completed Lactated Ringers Injection IV 1,000 mL 1,000 mL, Rate: 25 ml/hr, Infuse over: 40 hr, Route: IV, Dosing Weight 108.045 k g, Total Volume: 1,000, Start date: 06/05/17 10:35:00 CDT, Duration: 1 day, Stop date: 06/06/17 10:34:00 CDT, 2.26, m2 Start Date: 06/05/17 Stop Date: 06/06/17 Status: Completed Lactated Ringers Injection IV 1000 mL 1,000 mL, Rate: 125 ml/hr, Infuse over: 8 hr, Route: IV, Dosing Weight 108.045 k g, Total Volume: 1,000, Start date: 06/05/17 14:40:00 CDT, Duration: 30 day, Sto p date: 07/05/17 14:39:00 CDT, 2.26, m2 Start Date: 06/05/17 Stop Date: 06/05/17 Status: Discontinued Lexapro PO, Daily, 0 Refill(s) Start Date: 05/29/17 Status: Ordered lidocaine (ANES) Route: IV, Drug form: INJ, ONCE, Stop date: 06/05/17 13:19:00 CDT Start Date: 06/05/17 Stop Date: 06/05/17 Status: Completed Lopressor 50 mg, 1 tab, Route: PO, Drug form: TAB, Q12H, Dosing Weight 108.045, kg, Start date: 06/05/17 21:00:00 CDT, Duration: 30 day, Stop date: 07/05/17 9:00:00 CDT Notes: (Same as: Lopressor) Start Date: 06/05/17 Stop Date: 06/06/17 Status: Discontinued Lovenox 40 mg, 0.4 mL, Route: SUB-Q, Drug form: INJ, [id number], Dosing Weight 108.045, kg , Priority: Within 8 hours, Start date: 06/05/17 15:00:00 CDT, Duration: 30 day, Stop date: 07/04/17 9:00:00 CDT Notes: (Same as: Lovenox) Start Date: 06/05/17 Stop Date: 06/06/17 Status: Discontinued methocarbamol 1,500 mg, 2 tab, Route: PO, Drug form: TAB, TID, Dosing Weight 108.045, kg, Star t date: 06/05/17 17:00:00 CDT, Duration: 30 day, Stop date: 07/05/17 13:00:00 CD T Notes: (Same as:Robaxin) Start Date: 06/05/17 Stop Date: 06/06/17 Status: Discontinued methocarbamol 750 mg oral tablet 1,500 mg=2 tab, PO, TID, 0 Refill(s) Start Date: 05/29/17 Status: Ordered metoclopramide (ANES) Route: IV, Drug form: INJ, ONCE, Stop date: 06/05/17 13:19:00 CDT Start Date: 06/05/17 Stop Date: 06/05/17 Status: Completed metoprolol 50 mg oral tablet, extended release See Instructions, 1 1/2 tab PO BID, 0 Refill(s) Start Date: 05/29/17 Status: Ordered midazolam (ANES) Route: IV, Drug form: SOLN, ONCE, Stop date: 06/05/17 13:19:00 CDT Start Date: 06/05/17 Stop Date: 06/05/17 Status: Completed montelukast 10 mg, 1 tab, Route: PO, Drug form: TAB, Bedtime, Dosing Weight 108.045, kg, Sta rt date: 06/05/17 21:00:00 CDT, Duration: 30 day, Stop date: 07/04/17 21:00:00 C DT Notes: (Same as:Singulair) Start Date: 06/05/17 Stop Date: 06/06/17 Status: Discontinued montelukast 10 mg oral tablet 10 mg=1 tab, PO, Bedtime, # 30 tab, 0 Refill(s) Start Date: 05/29/17 Status: Ordered morphine Sulfate 2 mg, 1 mL, Route: IVP, Drug form: SOLN, Q2H, Dosing Weight 108.045, kg, PRN Dylan n Score 7-10, Start date: 06/05/17 14:50:00 CDT, Duration: 30 day, Stop date: 14:49:00 CDT Start Date: 06/05/17 Stop Date: 06/06/17 Status: Discontinued neostigmine (ANES) Route: IV, Drug form: INJ, ONCE, Stop date: 06/05/17 13:45:00 CDT Start Date: 06/05/17 Stop Date: 06/05/17 Status: Completed normal saline 0.9% IV 1,000 mL 1,000 mL, Rate: 100 ml/hr, Infuse over: 10 hr, Route: IV, Dosing Weight 108.045 kg, Total Volume: 1,000, Start date: 06/05/17 14:21:00 CDT, Duration: 30 day, St op date: 07/05/17 14:20:00 CDT, 2.26, m2 Start Date: 06/05/17 Stop Date: 06/06/17 Status: Discontinued ondansetron (ANES) Route: IV, Drug form: INJ, ONCE, Stop date: 06/05/17 13:45:00 CDT Start Date: 06/05/17 Stop Date: 06/05/17 Status: Completed pantoprazole 40 mg, PO, Daily, # 30 tab, 0 Refill(s) Start Date: 05/29/17 Stop Date: 06/28/17 Status: Ordered pantoprazole 40 mg, 1 tab, Route: PO, Drug form: ECTAB, Daily, Dosing Weight 108.045, kg, Sta rt date: 06/06/17 9:00:00 CDT, Duration: 30 day, Stop date: 07/05/17 9:00:00 CDT Notes: Tablet should not be chewed or crushed.(Same as: Protonix) Start Date: 06/06/17 Stop Date: 06/06/17 Status: Discontinued propofol (ANES) Route: IV, Drug form: INJ, ONCE, Stop date: 06/05/17 13:19:00 CDT Start Date: 06/05/17 Stop Date: 06/05/17 Status: Completed protamine (ANES) 10 mg Route: IV, Drug form: INJ, Start date: 06/05/17 13:36:00 CDT, Stop date: 8 14:36:00 CDT Start Date: 06/05/17 Stop Date: 06/05/17 Status: Completed rocuronium (ANES) Route: IV, Drug form: INJ, ONCE, Stop date: 06/05/17 13:19:00 CDT Start Date: 06/05/17 Stop Date: 06/05/17 Status: Completed Sodium Chloride 0.9% IV (ANES) 1000 mL Route: IV, Total Volume: 1,000, Start date: 06/05/17 12:23:00 CDT, Stop date: 13:23:00 CDT Start Date: 06/05/17 Stop Date: 06/05/17 Status: Completed Symbicort 160/4.5 inhalation aerosol with adapter 2 puff, INHALER, BID, # 1 ea, 3 Refill(s) Start Date: 05/29/17 Status: Ordered Symbicort 160/4.5 inhalation aerosol with adapter 2 inhalation, Route: INHALER, Drug Form: AERO/A, Dosing Weight 108.045, kg, BID, Start date: 06/05/17 17:00:00 CDT, Duration: 30 day, Stop date: 07/05/17 9:00:00 CDT Notes: (Same as: Symbicort)WASTE: Aerosol - Return to Pharmacy Start Date: 06/05/17 Stop Date: 06/06/17 Status: Discontinued vancomycin (ANES) 1000 mg Route: IV, Drug form: INJ, Start date: 06/05/17 12:17:00 CDT, Stop date: 8 13:17:00 CDT Start Date: 06/05/17 Stop Date: 06/05/17 Status: Completed vancomycin + Dextrose 5% in Water IV 250 mL 1 gm, Route: IVPB, Drug form: INJ, PRE OP, kg, Start date: 05/29/17 11:00:00 CDT , Duration: 1 day, Stop date: 05/30/17 10:59:00 CDT, ABX Indication: Surgical Pr ophylaxis Notes: TIME CRITICAL MEDICATION(Same As: Vancocin)Infusion rate< 1000 mg: infuse over 1 [id number] - 1500 mg: infuse over 1.5 [id number] - 2000 mg: infuse over 2 hours> 2001 mg: infuse over 2.5 hoursFor adult patients only: Round to nearest 250 mg per Medical Staff approval MEDICATION WASTE Product Size: 1000 mgProduct Wasted: ___ mg Start Date: 05/29/17 Stop Date: 05/30/17 Status: Completed Zofran 4 mg, 2 mL, Route: IVP, Drug form: INJ, Q8H, Dosing Weight 108.045, kg, PRN Naus ea, Start date: 06/05/17 14:54:00 CDT, Duration: 30 day, Stop date: 07/05/17 14: 53:00 CDT Notes: (Same as: Zofran) MEDICATION WASTE Product Size: 4 mgProduct Was rik: ___ mg Start Date: 06/05/17 Stop Date: 06/06/17 Status: Discontinued Zofran 4 mg oral tablet 4 mg=1 tab, PO, Q6H, PRN Nausea/Vomiting, # 30 tab, 0 Refill(s) Start Date: 05/29/17 Stop Date: 06/06/17 Status: Ordered zolpidem 5 mg, 1 tab, Route: PO, Drug form: TAB, Bedtime, Dosing Weight 108.045, kg, Star t date: 06/05/17 21:00:00 CDT, Duration: 30 day, Stop date: 07/04/17 21:00:00 CD T Notes: (Same As: Natasha) Start Date: 06/05/17 Stop Date: 06/06/17 Status: Discontinued zolpidem 10 mg oral tablet 10 mg=1 tab, PO, Bedtime, 0 Refill(s) Start Date: 05/29/17 Status: Ordered ZyrTEC See Instructions, Daily, 0 Refill(s) Start Date: 05/29/17 Status: Ordered Results BLOOD BANK RESULTS Most recent to 1 2 oldest [Reference Range]: ABO/Rh O POS *Unknown* (05/29/17 11:15 AM) Antibody Scrn Negative (05/29/17 11:15 AM) RBC product Product available 1 (06/05/17 8:59 AM) 1Result Comment: 06/05/2017 09:21 [id number] notified Olinda ELECTROLYTES Most recent to 1 2 oldest [Reference Range]: Sodium Lvl [135-145 140 mEq/L 143 mEq/L mEq/L] (06/06/17 4:02 AM) (05/29/17 11:15 AM) Potassium Lvl 3.5 mEq/L 4.4 mEq/L [3.5-5.1 mEq/L] (06/06/17 4:02 AM) (05/29/17 11:15 AM) Chloride Lvl [95-109 108 mEq/L 108 mEq/L mEq/L] (06/06/17 4:02 AM) (05/29/17 11:15 AM) CO2 [24-32 mEq/L] 28 mEq/L 26 mEq/L (06/06/17 4:02 AM) (05/29/17 11:15 AM) AGAP [10.0-20.0 7.5 mEq/L 13.4 mEq/L mEq/L] *LOW* (05/29/17 11:15 AM) (06/06/17 4:02 AM) CHEM PANEL Most recent to 1 2 oldest [Reference Range]: Creatinine Lvl 0.91 mg/dL 0.82 mg/dL [0.50-1.40 mg/dL] (06/06/17 4:02 AM) (05/29/17 11:15 AM) eGFR 76 mL/min/1.73m2 1 86 mL/min/1.73m2 2 *NA* *NA* (06/06/17 4:02 AM) (05/29/17 11:15 AM) BUN [7-22 mg/dL] 10 mg/dL 14 mg/dL (06/06/17 4:02 AM) (05/29/17 11:15 AM) Glucose Lvl [70-99 122 mg/dL 87 mg/dL mg/dL] *HI* (05/29/17 11:15 AM) (06/06/17 4:02 AM) Calcium Lvl 7.7 mg/dL 8.5 mg/dL [8.5-10.5 mg/dL] *LOW* (05/29/17 11:15 AM) (06/06/17 4:02 AM) 1Result Comment: The eGFR is calculated [...] be mul tiplied by the estimated BMI. HEMATOLOGY Most recent to 1 2 oldest [Reference Range]: WBC [3.7-10.4 K/CMM] 7.5 K/CMM 7.9 K/CMM (06/06/17 4:02 AM) (05/29/17 11:15 AM) RBC [4.20-5.40 4.25 M/CMM 4.75 M/CMM M/CMM] (06/06/17 4:02 AM) (05/29/17 11:15 AM) Hgb [12.0-16.0 g/dL] 10.4 g/dL 11.8 g/dL *LOW* *LOW* (06/06/17 4:02 AM) (05/29/17 11:15 AM) Hct [36.0-48.0 %] 33.3 % 36.5 % *LOW* (05/29/17 11:15 AM) (06/06/17 4:02 AM) MCV [80.0-98.0 fL] 78.3 fL 76.9 fL *LOW* *LOW* (06/06/17 4:02 AM) (05/29/17 11:15 AM) MCH [27.0-31.0 pg] 24.6 pg 24.9 pg *LOW* *LOW* (06/06/17 4:02 AM) (05/29/17 11:15 AM) MCHC [32.0-36.0 31.4 g/dL 32.3 g/dL g/dL] *LOW* (05/29/17 11:15 AM) (06/06/17 4:02 AM) RDW [11.5-14.5 %] 16.7 % 16.5 % *HI* *HI* (06/06/17 4:02 AM) (05/29/17 11:15 AM) MPV [7.4-10.4 fL] 8.7 fL 9.1 fL (06/06/17 4:02 AM) (05/29/17 11:15 AM) Platelet [133-450 241 K/CMM 382 K/CMM K/CMM] (06/06/17 4:02 AM) (05/29/17 11:15 AM) Segs [45.0-75.0 %] 71.8 % 62.8 % (06/06/17 4:02 AM) (05/29/17 11:15 AM) Lymphocytes 14.2 % 25.6 % [20.0-40.0 %] *LOW* (05/29/17 11:15 AM) (06/06/17 4:02 AM) Monocytes [2.0-12.0 12.3 % 8.9 % %] *HI* (05/29/17 11:15 AM) (06/06/17 4:02 AM) Eosinophils [0.0-4.0 1.2 % 2.0 % %] (06/06/17 4:02 AM) (05/29/17 11:15 AM) Basophils [0.0-1.0 0.5 % 0.7 % %] (06/06/17 4:02 AM) (05/29/17 11:15 AM) Segs-Bands # 5.4 K/CMM 5.0 K/CMM [1.5-8.1 K/CMM] (06/06/17 4:02 AM) (05/29/17 11:15 AM) Lymphocytes # 1.1 K/CMM 2.0 K/CMM [1.0-5.5 K/CMM] (06/06/17 4:02 AM) (05/29/17 11:15 AM) Monocytes # [0.0-0.8 0.9 K/CMM 0.7 K/CMM K/CMM] *HI* (05/29/17 11:15 AM) (06/06/17 4:02 AM) Eosinophils # 0.1 K/CMM 0.2 K/CMM [0.0-0.5 K/CMM] (06/06/17 4:02 AM) (05/29/17 11:15 AM) Basophils # [0.0-0.2 0.1 K/CMM K/CMM] (05/29/17 11:15 AM) Microcyte [None 1+ 1+ Seen] *ABN* *ABN* (06/06/17 4:02 AM) (05/29/17 11:15 AM) PT [12.0-14.7 12.2 seconds seconds] (05/29/17 11:15 AM) INR [0.85-1.17] 0.91 (05/29/17 11:15 AM) PTT [22.9-35.8 32.6 seconds seconds] (05/29/17 11:15 AM) Immunizations No data available for this [...] Reg Smoking Cessation Counseling No entered on: 05/29/17 Assessment and Plan Extracted from: Title: Clinical Document Author: Humberto Key MD Date: 06/06/17 VASCULAR SURGERY PROGRESS NOTE SUBJECTIVE -Doing well. OBJECTIVE - VitalsTmp(F)Tmp(C)[id number] 06/06 03:[id number] 06/06 00:21 97------ 06/06 00:00 [id number]--------- 06/05 23:[id number]--------- 06/05 22:00 [id number]--------- 24 Hr Tmax: 98.9F (37.17c) at 06/05 23:00Vital Signs are the last 5 in the past 48 hours. 24 Hr Tmin: 97.8F (36.56c) at 06/05 10:46Weights are the last 5 in 60 days, plus initial. DateWt(kg)Wt(lb)Ht(cm)Ht(in)MethodBMIBSA 79358.27 236.00Measured 05/29 (initial)108.05 237.70Measured 39.62.23 65.10 65.00Stated (no point of care glucose results charted in last 24 hours) Most Recent Scores: 06/06/17Pain Intensity NRS (0-10)0 06/06/17Glasgow Coma Score15 06/05/17Johns Willams Fall Score15 Lines, Tubes, and Drains: 06/05/2017 14:00 Peripheral Lines: Hand Right 18 gauge Over the needle catheter 06/05/2017 10:56 Peripheral Lines: Hand Left 20 gauge Over the needle catheter Surgical Procedures: 06/05/17 12:35COIL EMBOLIZATION / STENT GRAFT, RENAL ARTERY ANEURYSM, RT [id number] Surgeon: Humberto Key MD (Service: CVT) I/O Intake OutputBalance 06/05/2017 7a-3p 1524.00 20.00 1504.00 3p-11p 6.00 [...] and pink Cr. 0.9 HgB 10.4 PLAN & TREATMENT D/C to home F/U in office in 2 weeks
--- OUTSIDE RECORDS SUMMARY | 2018-11-21 07:58 | XMS REPORT | Summary of Care ---
Author Author [facility] Organization [facility] Address Unknown Phone Unavailable Encounter [facility] Soumya(FIN) [id number] Date(s): 06/05/17 - 06/06/17 [facility] [address] [place] [address]- Encounter Diagnosis Aneurysm of renal artery (Final) - 06/20/17 Essential (primary) hypertension (Final) - Mild intermittent asthma, uncomplicated (Final) - Gastro-esophageal reflux disease without esophagitis (Final) - Discharge Disposition: Home or Self [...] date: 06/05/17 10:35:00 CDT Notes: (Same as: Tim) Start Date: 06/05/17 Stop Date: 06/06/17 Status: Completed Ancef + sterile water 20 mL 2 gm, Route: IV, PRE OP, kg, Start date: 05/29/17 11:00:00 CDT, Duration: 1 day, Stop date: 05/30/17 10:59:00 CDT, ABX Indication: Surgical Prophylaxis Notes: (Same As: Max Nicole) MEDICATION WASTE Product Size: 1000 mgP roduct [...] Stop date: 07/05/17 8:00:00 CDT Notes: (Same as:Riyaditor) Start Date: 06/05/17 Stop Date: 06/06/17 Status: [...] 0.4 mL, Route: SUB-Q, Drug form: INJ, [id number], Dosing Weight 108.045, kg , Priority: Within [...] Vancocin)Infusion rate< 1000 mg: infuse over 1 [id number] - 1500 mg: infuse over 1.5 [id number] - 2000 mg: infuse over 2 hours> [...] (06/05/17 8:59 AM) 1Result Comment: 06/05/2017 09:21 [id number] notified Olinda ELECTROLYTES Most recent to 1 [...] No entered on: 06/12/17 Assessment and Plan Extracted from: Title: Clinical Document Author: Humberto Key MD Date: 06/06/17 VASCULAR SURGERY PROGRESS NOTE SUBJECTIVE -Doing well. OBJECTIVE - VitalsTmp(F)Tmp(C)[id number] 06/06 03:0098.536.94oral 06/06 00:21 97------ 06/06 00:00 137/[id number]--------- 06/05 23:0098.937.50ljuo899/[id number]--------- 06/05 22:00 135/[id number]--------- 24 Hr Tmax: 98.9F (37.17c) at 06/05 23:00Vital Signs are the last 5 in the past 48 hours. 24 Hr Tmin: 97.8F (36.56c) at 06/05 10:46Weights are the last 5 in 60 days, plus initial. DateWt(kg)Wt(lb)Ht(cm)Ht(in)MethodBMIBSA 29010.27 236.00Measured 05/29 (initial)108.05 237.70Measured 39.62.23 75522.10 65.00Stated (no point of care glucose results [...] / STENT GRAFT, RENAL ARTERY ANEURYSM, RT [id number] Surgeon: Humberto Key MD (Service: CVT) I/O [...]
[2018-11-21 13:40] VITALS: BP 138/89
--- NOTE | 2018-11-22 23:03 | Operative Report ---
DATE OF PROCEDURE: 11/21/2018 SURGEON: Michael Frank DPM ROOM NUMBER: [facility]. PREOPERATIVE DIAGNOSIS: Ruptured anterior talofibular ligament of the right foot. POSTOPERATIVE DIAGNOSIS: Ruptured anterior talofibular ligament of the right foot. TITLE OF THE OPERATION: Repair of the anterior talofibular ligament with an Arthrex bioabsorbable corkscrew. PROCEDURE IN DETAIL: The patient was taken to the operating room in a mildly sedated state, placed on the operating table in supine position. Following induction of general anesthetic, the right lower extremity was elevated to 60 degrees to exsanguinate before inflating the pneumatic thigh tourniquet to 350 mmHg to create good hemostasis. The right lower extremity was placed on the operating table prior to performing the following procedure. Procedure #1: Repair of the anterior talofibular ligament of the right foot. An approximates 2 cm transverse incision was made overlying the area of the anterior talofibular ligament and distal fibula. The incision was deepened via sharp and blunt dissection down to the level of the ruptured anterior talofibular ligament. This was attenuated and nonviable in nature. A transverse tenotomy through the remaining tissue showed significant underlying bony hypertrophy. Further dissection showed a very large void in the anterior talofibular ligament. This was reefed appropriately and the anchor was attached through the distal fibula utilizing fluoroscopy as a guide. This having been accomplished, the anchor having been installed appropriately. The deep tissues were then closed with FiberWire and the area was irrigated with copious amounts of sterile saline solution. Deep closure was 3-0 Vicryl. Subcutaneous closure was 4-0 Vicryl and 4-0 nylon. The area was injected with a flowable form of human tissue allograft to serve as soft tissue matrix to improve the outcome of the repair. The area then was dressed in the appropriate mildly compressive dressings. Posterior splint was applied. The patient left the operating room with vital signs stable and in apparent satisfactory condition having tolerated both anesthetic and procedure very well. Michael Frank DPM SM/MODL /[id number]
== END | disposition home or self-care (01) ==
LOC: OR 07:42
PROVIDERS: ATTEND Podiatrist Foot Surgery
DX: S93.491A Sprain of other ligament of right ankle, initial encounter (principal); J45.909 Unspecified asthma, uncomplicated; I10 Essential (primary) hypertension; K58.9 Irritable bowel syndrome, unspecified; K21.9 Gastro-esophageal reflux disease without esophagitis; Z88.6 Allergy status to analgesic agent; Z88.8 Allergy status to other drugs, medicaments and biological substances; Z01.810 Encounter for preprocedural cardiovascular examination; Z01.812 Encounter for preprocedural laboratory examination; Z01.818 Encounter for other preprocedural examination
CPT/HCPCS: 27695; 36415; 71046; 76000; 80048; 85025; 88305; 88311; 93005; C1713; J0690; J1100; J1200; J2001; J2250; J2405; J2704; J2710; J3010; Q4100; 88304

== ENCOUNTER 2024-09-03 22:57 | Emergency (ER) | payer BC, OTHER ==
[~2024-09-03] VITALS: Ht 162.6 cm; Wt 81.6 kg
[~2024-09-03 22:57] MED LIST changes: -BUPIVACAINE 0.25% 30ML SDV INJ ONE; -BUPIVACAINE HCL 0.5% INJ 30 ML VIAL INJ ONE; -CEFAZOLIN SOD 1 GM/NS 50ML 100 ML IV ONE; -DEXAMETHASONE SOD PHOS INJ 4 MG/ML VIAL ONE; -DIPHENHYDRAMINE HCL INJ 50 MG/ML VIAL ONE; -FENTANYL CITRATE/PF 100MCG/2 ML INJ ONE; -LIDOCAINE HCL 2% LOCAL INJ 5 ML SDV VIAL INJ ONE; -MIDAZOLAM HCL 2 MG/2 ML VIAL ONE; -NEOSTIGMINE 1 MG/ML 10ML VIAL ONE; -ONDANSETRON HCL INJ 2MG/ML 2ML 2 MG/ML VIAL ONE; -PROPOFOL IV EMULSION 10 MG/ML 20 ML VIAL ONE; -SEVOFLURANE INHAL SOLN 250 ML PEN BTL ONE
[2024-09-03 22:58] VITALS: TEMP 98.8
[2024-09-03] MEDS ORDERED: PIPERACILLIN/TAZOBACTAM 3.375 GM VIAL ONE (23:30)
[2024-09-03 23:46] LABS: BASOPHILS % 0.3 % (0.0-1.0); EOSINOPHILS % 1.2 % (0.0-6.0); LYMPHOCYTES % 22.8 % (18.0-39.1); MONOCYTES % 8.5 % (4.4-11.3); NEUTROPHILS % 66.9 % (38.7-80.0); RED CELL DISTRIBUTION WIDTH 15.6 % (11.7-14.4)
[2024-09-04 00:06] LABS: EST GLOMERULAR FILTRATION RATE 67.0 ML/MIN (>=60)
[2024-09-04] MEDS ORDERED: AMOX TR-K CLV1 EAC2 PO (00:25)
[2024-09-04] MEDS ORDERED: PREDNISONE20 MG PO (00:25)
[2024-09-04 00:48] VITALS: PULSE 82; RESP 20
[2024-09-04 00:49] VITALS: BP 146/89; PULSE 82; RESP 20; O2SAT 99
[2024-09-05] MEDS ORDERED: ATORVASTATIN CA20 MG PO (00:27)
[2024-09-05] MEDS ORDERED: VENLAFAXINE HCL75 MG PO (00:27)
[2024-09-05] MEDS ORDERED: BACTRIM DS TAB1 EACH PO (00:27)
[2024-09-05] MEDS ORDERED: MUPIROCIN22 GM TOP (00:27)
== END 2024-09-04 00:51 | disposition home or self-care (01) ==
LOC: ER 23:06
DX: S80.862A Insect bite (nonvenomous), left lower leg, initial encounter (principal); S80.861A Insect bite (nonvenomous), right lower leg, initial encounter; R21 Rash and other nonspecific skin eruption; Z88.5 Allergy status to narcotic agent; Z88.8 Allergy status to other drugs, medicaments and biological substances
CPT/HCPCS: 36415; 80053; 85025; 99284; J2543

== ENCOUNTER 2024-09-04 21:37 | Inpatient (IN) | payer OTHER ==
[~2024-09-04] VITALS: Ht 162.6 cm; Wt 81.6 kg
[~2024-09-04 21:37] MED LIST changes: +AMOX TR-K CLV1 EAC2 PO; +PREDNISONE20 MG PO
[2024-09-04 21:51] VITALS: RESP 18; TEMP 99.1
[2024-09-04 23:00] VITALS: PULSE 71
[2024-09-04] MEDS ORDERED: DIPHENHYDRAMINE HCL 30 GM TUBE TOP PRN (23:00)
[2024-09-05] VITALS (9 sets, daily range): BP systolic 118–170; BP diastolic 71–99; PULSE 69–81; RESP 18–20; TEMP 97.7–98.6; O2SAT 96–99
[2024-09-05] MEDS ORDERED: VENLAFAXINE HCL75 MG PO (00:27)
[2024-09-05] MEDS ORDERED: ATORVASTATIN CA20 MG PO (00:27)
[2024-09-05] MEDS ORDERED: BACTRIM DS TAB1 EACH PO (00:27)
[2024-09-05] MEDS ORDERED: MUPIROCIN22 GM TOP (00:27)
[2024-09-05] MEDS: SODIUM CHLORIDE 0.9% 1000ML 1,000 ML IV SCH (00:42)
[2024-09-05] MEDS: DIPHENHYDRAMINE HCL INJ 50 MG/ML VIAL IV PRN (01:03)
[2024-09-05] MEDS: ONDANSETRON HCL INJ 2MG/ML 2ML 2 MG/ML VIAL IV PRN (01:03)
[2024-09-05] MEDS: Morphine 4mg INJECTION 4 MG/ML INJ IV PRN (01:22)
[2024-09-05 01:24] LABS: BASOPHILS % 0.3 % (0.0-1.0); EOSINOPHILS % 0.9 % (0.0-6.0); LYMPHOCYTES % 16.6 % (18.0-39.1); MONOCYTES % 6.8 % (4.4-11.3); NEUTROPHILS % 75.1 % (38.7-80.0); RED CELL DISTRIBUTION WIDTH 15.5 % (11.7-14.4)
[2024-09-05 01:40] LABS: EST GLOMERULAR FILTRATION RATE 55.0 ML/MIN (>=60)
[2024-09-05 08:43] LABS: CHOL/HDL RATIO 3.8 (3.0-3.6); EST GLOMERULAR FILTRATION RATE 71.0 ML/MIN (>=60); LDL CHOLESTEROL 57.0 MG/DL (60-130); PHOSPHORUS 4.1 MG/DL (2.3-4.7)
[2024-09-05] MEDS: MAGNESIUM SULFATE 2GM/50ML 50 ML IV ONE (12:23)
[2024-09-05] MEDS: FLUCONAZOLE 100 MG TAB PO ONE (12:23)
[2024-09-05] MEDS: POTASSIUM CHLORIDE 10MEQ EA PO ONE (14:24)
[2024-09-05] MEDS ORDERED: FUROSEMIDE 40 MG TAB PO SCH (17:30)
[2024-09-05] MEDS: AZELASTINE 0.1% HCL 137 MCG NASAL SPRAY NS SCH (17:30)
[2024-09-05] MEDS: FLUTICASONE PROPIONATE NASAL SPRAY NS SCH (17:30)
[2024-09-05] MEDS ORDERED: BUDESONIDE/FORMOTEROL 160/4.5MCG INHALER INH SCH (17:30)
[2024-09-05] MEDS ORDERED: GUAIFENESIN 600MG/DEXTROMETHORPHAN 30MG TABSR PO SCH (17:30)
[2024-09-05] MEDS: LORATADINE 10 MG TAB PO SCH (17:30)
[2024-09-05] MEDS ORDERED: HYDRALAZINE HCL 25 MG TAB PO SCH (17:30)
[2024-09-05] MEDS ORDERED: METOPROLOL TARTRATE 50 MG TAB PO SCH (17:30)
[2024-09-05] MEDS ORDERED: ALBUTEROL/IPRATROPIUM 3 ML NEB INH PRN (17:30)
[2024-09-05] MEDS: PANTOPRAZOLE SOD 40 MG TABEC PO SCH (18:05)
[2024-09-05] MEDS: BUDESONIDE/FORMOTEROL 160/4.5MCG INHALER INH SCH (21:00)
[2024-09-05] MEDS: MUPIROCIN 2% OINT 22 GM TUBE TOP SCH (21:34)
[2024-09-05] MEDS: HYDRALAZINE HCL 25 MG TAB PO SCH (21:42)
[2024-09-05] MEDS: ZOLPIDEM TARTRATE 10 MG TAB PO SCH (21:43)
[2024-09-05] MEDS: VENLAFAXINE HCL 75 MG TAB PO SCH (21:43)
[2024-09-05] MEDS: ATORVASTATIN 20 MG TAB PO SCH (21:43)
[2024-09-05] MEDS: METOPROLOL TARTRATE 50 MG TAB PO SCH (21:44)
[2024-09-05] MEDS: MONTELUKAST SODIUM 10 MG TAB PO SCH (21:44)
[2024-09-05] MEDS ORDERED: GUAIFENESIN 600MG/DEXTROMETHORPHAN 30MG TABSR PO PRN (23:30)
[2024-09-06 00:20] VITALS: BP 148/96; PULSE 75; RESP 20; TEMP 98.6; O2SAT 97
[2024-09-06] MEDS ORDERED: FUROSEMIDE 40 MG TAB PO SCH (02:00)
[2024-09-06 04:51] VITALS: BP 165/101; PULSE 66; RESP 18; TEMP 98.7; O2SAT 96
[2024-09-06 08:00] VITALS: BP 154/90; PULSE 74; RESP 20; TEMP 98; O2SAT 96
[2024-09-06] MEDS ORDERED: FUROSEMIDE 40 MG TAB PO PRN (08:00)
[2024-09-06] MEDS ORDERED: HYDRALAZINE HCL 25 MG TAB PO PRN (08:00)
[2024-09-06 08:20] LABS: BASOPHILS % 0.3 % (0.0-1.0); EOSINOPHILS % 3.2 % (0.0-6.0); LYMPHOCYTES % 22.8 % (18.0-39.1); MONOCYTES % 7.3 % (4.4-11.3); NEUTROPHILS % 65.8 % (38.7-80.0); RED CELL DISTRIBUTION WIDTH 15.7 % (11.7-14.4)
[2024-09-06 08:59] LABS: EST GLOMERULAR FILTRATION RATE 84.0 ML/MIN (>=60)
[2024-09-06 09:01] VITALS: PULSE 75; RESP 20; O2SAT 98
[2024-09-06] MEDS ORDERED: DIPHENHYDRAMINE25 M1 PO (10:35)
[2024-09-06] MEDS ORDERED: MICONAZOLE 745 GM VG (10:35)
[2024-09-06] MEDS ORDERED: ANTI-ITCH 2%-0.35 GM TP (10:35)
[2024-09-06] MEDS: HYDROCHLOROTHIAZIDE 25 MG TAB PO SCH (11:25)
[2024-09-06] MEDS: LISINOPRIL 20 MG TAB PO SCH (11:25)
[2024-09-06 12:05] VITALS: BP 154/90; PULSE 75; RESP 20; TEMP 98; O2SAT 98
[2024-09-06] MEDS: POLYETHYLENE GLYCOL 3350 17 GM PACK PO ONE (14:36)
[2024-09-06] MEDS: DOCUSATE SODIUM 100 MG CAP PO ONE (14:36)
[2024-09-08 11:12] LABS: RHEUMATOID FACTOR <10.0 IU/mL (<14.0)
[2024-09-08 14:32] LABS: CYCLIC CITRULLINATED PEPTID AB 9 units (0-19)
== END 2024-09-06 14:00 | disposition home or self-care (01) | DRG 603 ==
LOC: ER 21:42 → ERHOLD 21:43 → MED/SURG 09-05 00:06
PROVIDERS: ADMIT Internal Medicine; ATTEND Internal Medicine
DX: L03.115 Cellulitis of right lower limb (principal); N17.9 Acute kidney failure, unspecified; L03.116 Cellulitis of left lower limb; E86.0 Dehydration; E87.6 Hypokalemia; E11.9 Type 2 diabetes mellitus without complications; I10 Essential (primary) hypertension; F32.A Depression, unspecified; E78.5 Hyperlipidemia, unspecified; E83.42 Hypomagnesemia; L30.9 Dermatitis, unspecified; J45.909 Unspecified asthma, uncomplicated; B37.31 Acute candidiasis of vulva and vagina; E66.9 Obesity, unspecified; Z68.30 Body mass index [BMI] 30.0-30.9, adult; S80.861A Insect bite (nonvenomous), right lower leg, initial encounter; W57.XXXA Bitten or stung by nonvenomous insect and other nonvenomous arthropods, initial encounter; S80.862A Insect bite (nonvenomous), left lower leg, initial encounter; Z90.49 Acquired absence of other specified parts of digestive tract; Z88.5 Allergy status to narcotic agent; Z88.6 Allergy status to analgesic agent
CPT/HCPCS: 36415; 80048; 80053; 80061; 82948; 83036; 83735; 84100; 84439; 84443; 85025; 86039; 86140; 86200; 86431; 94664; 94799; 99284; J1200; J2270; J2405; J2470; J3475; J7030